=== PATIENT | male | born 1940 | race Caucasian/White ===

== ENCOUNTER → 2018-05-09 14:19 | Outpatient (CLI) | payer MEDICARE, BC, SELFPAY ==
--- NOTE | 2018-05-09 | DI.US.S_ITS ---
PROCEDURE: US PERIPH VENOUS LOW EXTREM LT INDICATIONS: LEFT LEG PAIN TECHNIQUE: Real-time imaging, as well as color and pulse Doppler interrogation, were performed of the lower extremity deep veins from the inguinal ligament to the popliteal fossa. COMPARISON: None. FINDINGS: The deep veins are normally compressible, and free of intraluminal thrombus. Color and pulse Doppler demonstrate normal phasic intraluminal flow. There is normal augmentation response to distal compression maneuver. IMPRESSION: Negative for deep venous thrombosis. Dictated by: Alex Tang M.D. on 05/09/2018 at 15:45 Approved by: Alex Tang M.D. on 05/09/2018 at 15:45
== END ==
PROVIDERS: PCP Internal Medicine; Visit Provider Neurological Surgery
DX: M79.662 Pain in left lower leg (principal)
CPT/HCPCS: 93971

== ENCOUNTER → 2018-08-10 14:11 | Outpatient (CLI) | payer MEDICARE, BC, SELFPAY ==
--- NOTE | 2018-08-10 | DI.RAD.S_ITS ---
PROCEDURE: XR CHEST 2V INDICATIONS: ACUTE BRONCHITIS TECHNIQUE: 2 views of the chest were acquired. COMPARISON: [facility], , CHEST 2 VIEW, 11/26/2015, 15:08. FINDINGS: Surgical changes and devices: Median sternotomy wires, atrial clip, and right chest wall cardiac device positions unchanged. Lungs and pleura: No pleural effusions or pneumothorax. Increased bronchovascular markings in bilateral hilar region are seen. Increase opacity in right infrahilar region is noted suspicious for right lower lobe infiltrate. Mediastinum: Mediastinal contours are normal. Heart size is enlarged. Bones and chest wall: No suspicious bony abnormalities. Soft tissues appear unremarkable. IMPRESSION: Findings concerning for small right infrahilar infiltrate. No significant pleural effusion. No gross pneumothorax. Dictated by: Ajay Foster M.D. on 08/10/2018 at 15:59 Approved by: Ajay Foster M.D. on 08/10/2018 at 16:00
== END ==
PROVIDERS: PCP Internal Medicine; Visit Provider Student in an Organized Health Care Education/Training Program
DX: J20.9 Acute bronchitis, unspecified (principal)
CPT/HCPCS: 71046

== ENCOUNTER → 2019-03-03 16:30 | Outpatient (CLI) | payer MEDICARE, BC, SELFPAY ==
--- NOTE | 2019-03-03 16:35 | DI.RAD.S_ITS ---
PROCEDURE: XR LUMBAR SPINE 2-3V INDICATIONS: LOWER BACK PAIN TECHNIQUE: 3 views of the lumbar spine were acquired. COMPARISON: None. FINDINGS: Bones: 5 [id number] vertebrae are present. There is levoscoliosis of the mid lumbar spine centered at L2-3 with associated moderate multilevel lumbar spondylosis and facet arthropathy. Degenerative changes of the lower thoracic spine. No vertebral body compression fractures. No suspicious bony lesions. Soft tissues: Overlying bowel gas pattern is normal. No suspicious soft tissue calcifications. Median sternotomy wires are noted. Dual-lead cardiac pacer leads are partially imaged. Multiple surgical clips in the lower abdomen and pelvis. IMPRESSION: 1. Lumbar spine without acute radiographic abnormalities. 2. Levoscoliosis of the mid lumbar spine with associated moderate multilevel thoracolumbar spondylosis. Dictated by: Jericho Pang M.D. on 03/03/2019 at 17:54 Approved by: Jericho Pang M.D. on 03/03/2019 at 17:57
== END ==
PROVIDERS: PCP Internal Medicine; Visit Provider Internal Medicine
DX: M54.5 Low back pain (principal); M47.815 Spondylosis without myelopathy or radiculopathy, thoracolumbar region; M41.86 Other forms of scoliosis, lumbar region
CPT/HCPCS: 72100

== ENCOUNTER → 2020-11-06 19:34 | Outpatient (ROUT) | payer MEDICARE, BC, SELFPAY ==
[2020-11-06 19:58] LABS: Aspartate Aminotransferase 29 IU/L (17-59); BUN Creatinine Ratio 23.8 (6-22); Blood Urea Nitrogen 20 mg/dL (9-20); Calcium 9.5 mg/dL (8.4-10.2); Carbon Dioxide 26 mmol/L (22-32); Chloride 98 mmol/L (98-107); Cholesterol 188 mg/dL (140-199); Estimated Glomerular Filt Rate > 60.0 mL/min (>60); Glucose 97 mg/dL (80-110); HDL Cholesterol 90 mg/dL (40-60); HEMOLYSIS 15 (0-50); LDL Cholesterol Calculated 58 mg/dL (<100); Potassium 4.3 mmol/L (3.4-5.1); Sodium 132 mmol/L (137-145); Triglycerides 198 mg/dL (35-150)
[2020-11-06 19:59] LABS: Add Manual Diff / Slide Review NO; Basophils Absolute Auto 100 /uL (0-100); Eosinophils Absolute Auto 300 /uL (0-450); Eosinophils Percent Auto 3.6 % (2-4); Hematocrit 40.6 % (41-53); Hemoglobin 13.7 g/dL (13.5-17.5); Lymphocytes Absolute Auto 3200 /uL (1100-4500); Mean Corpuscular HGB Conc 33.7 % (30-36); Mean Corpuscular Hemoglobin 31.5 PG (26-34); Mean Corpuscular Volume 93.5 fL (80-100); Monocytes Absolute Auto 700 /uL (0-900); Monocytes Percent Auto 8.4 % (3-14); Neutrophils Absolute Auto 3800 /uL (1500-7000); Platelet Count 221 X10^3/uL (150-400); Red Blood Cell Count 4.35 X10^6/uL (4.5-5.9); Red Cell Distribution Width 13.7 % (11.6-14.8); White Blood Cell Count 8.1 X10^3/uL (4.5-11.0)
[2020-11-06 20:30] LABS: TSH w/ Reflex to FT4 2.91 uIU/mL (0.47-4.68)
[2020-11-06 20:31] LABS: Prostate Specific Antigen 0.825 ng/mL (0.10-4.00)
== END ==
PROVIDERS: PCP Internal Medicine; Visit Provider Internal Medicine
DX: I10 Essential (primary) hypertension (principal); E78.2 Mixed hyperlipidemia; I48.91 Unspecified atrial fibrillation; N40.1 Benign prostatic hyperplasia with lower urinary tract symptoms
CPT/HCPCS: 80048; 80061; 84153; 84443; 84450; 85025

== ENCOUNTER 2021-01-07 11:08 | Emergency (ER) | payer MEDICARE, BC, SELFPAY ==
[2021-01-07 11:09] VITALS: BP 186/98; PULSE 82; RESP 18; TEMP 36.1; O2SAT 98; BMI 25.4
[2021-01-07 11:28] LABS: Add Manual Diff / Slide Review NO; Basophils Absolute Auto 100 /uL (0-100); Eosinophils Absolute Auto 200 /uL (0-450); Eosinophils Percent Auto 2.4 % (2-4); Hematocrit 40.2 % (41-53); Hemoglobin 13.2 g/dL (13.5-17.5); Lymphocytes Absolute Auto 2200 /uL (1100-4500); Lymphocytes Percent Auto 29.9 % (25-40); Mean Corpuscular HGB Conc 32.7 % (30-36); Mean Corpuscular Hemoglobin 30.7 PG (26-34); Mean Corpuscular Volume 93.9 fL (80-100); Monocytes Absolute Auto 500 /uL (0-900); Monocytes Percent Auto 7.4 % (3-14); Neutrophils Absolute Auto 4400 /uL (1500-7000); Neutrophils Percent Auto 59.3 % (50-75); Platelet Count 252 X10^3/uL (150-400); Red Blood Cell Count 4.29 X10^6/uL (4.5-5.9); Red Cell Distribution Width 13.6 % (11.6-14.8); White Blood Cell Count 7.4 X10^3/uL (4.5-11.0)
--- NOTE | 2021-01-07 11:31 | ED_ITS ---
HPI - Chest Pain General Chief Complaint: Chest Pain Stated Complaint: dizziness, chest pain, nausea, has a pacemaker Time Seen by Provider: 01/07/21 11:30 Source: patient Mode of arrival: Wheelchair Limitations: no limitations History of Present Illness HPI narrative: This is a 80-year-old male who comes with complaint of chest pain that started at 9:30 a.m. this morning. Patient has some nausea and felt dizzy. He has some radiation towards the back. He denies any shortness of breath. He states he has not had any syncope. He denies any diaphoresis. He denies any vomiting but does continue to feel nauseated. He took 281 mg aspirin prior to arrival. Patient denies any swelling in his extremities. He is on Eliquis for atrial fibrillation and has a history of mitral valve repair which improved his frequency of atrial fibrillation. Patient denies any prior cardiac stents or bypass otherwise. Does take medication for hypertension and dyslipidemia. Patient denies any other surgeries besides a thumb amputation and appendectomy. He denies any allergies to medications. He does not use any tobacco, rare alcohol and no illicit. He is accompanied by his . He follows with cardiology at [facility] with Dr. Ocasio. Related Data Home Medications Medication Instructions Recorded Confirmed apixaban 5 mg tablet 5 mg PO BID 04/08/20 06/11/20 atorvastatin 10 mg tablet 10 mg PO DAILY 04/08/20 06/11/20 cholecalciferol (vitamin D3) 10 10 mcg PO DAILY 04/08/20 06/11/20 mcg (400 unit) capsule diltiazem HCl 120 mg 120 mg PO BID 04/08/20 06/11/20 capsule,extended release 12 hr esomeprazole magnesium 40 mg 40 mg PO DAILY 04/08/20 06/11/20 capsule,delayed release finasteride 5 mg tablet 5 mg PO DAILY 04/08/20 06/11/20 hydrochlorothiazide 25 mg tablet 25 mg PO DAILY 04/08/20 06/11/20 losartan 50 mg tablet 50 mg PO DAILY 04/08/20 06/11/20 lutein 40 mg capsule 40 mg PO DAILY 04/08/20 06/11/20 sildenafil (pulm.hypertension) 20 20 mg PO TID 04/08/20 06/11/20 mg tablet sotalol 80 mg tablet 80 mg PO BID 04/08/20 06/11/20 Allergies Allergy/AdvReac Type Severity Reaction Status Date / Time No Known Drug Allergies Allergy Verified 01/07/21 11:23 Review of Systems Review of Systems ROS Unobtainable: All systems reviewed & are unremarkable except as noted in HPI and below Patient History Medical History (Updated 01/07/21 @ 12:07 by Cyn Petit DO) BPH w urinary obs/LUTS Erectile dysfunction HTN (hypertension) Lower urinary tract symptoms (LUTS) Pacemaker Urge incontinence Surgical History H/O knee surgery History of appendectomy History of hernia surgery History of hip surgery Social History Smoking Status: Never smoker Smoking Status: Never smoker alcohol intake frequency: holidays/special occasions only Substance Use Type: does not use Exam Narrative Exam Narrative: GENERAL: Alert and oriented x three, well-nourished male in mild distress. No diaphoresis. HEENT: Head normocephalic, atraumatic, EOMI, pupils reactive, face symmetric, moist mucous membranes NECK: Supple, full range of motion CARDIOVASCULAR: Regular rate and rhythm without murmurs, rubs or gallops. RESPIRATORY: Breath sounds equal bilaterally, no wheezes rales or rhonchi. ABDOMEN: Soft, nontender. Normoactive bowel sounds all 4 quadrants. No gua rding or rebound, rigidity, no mass, no pulsatile mass or bruit. : No CVA tenderness EXTREMITIES: Normal range of motion, no clubbing or edema. Neurovascularly intact NEUROLOGICAL: Cranial nerves II through XII grossly intact. Moving all extremities SKIN: Warm, dry, no petechiae, no rashes or lesions. Initial Vital Signs Initial Vital Signs: Vital Signs Temperature 97.0 F L 01/07/21 11:09 Pulse Rate 82 01/07/21 11:09 Respiratory Rate 18 01/07/21 11:09 Blood Pressure 186/98 H 01/07/21 11:09 Pulse Oximetry 98 01/07/21 11:09 Course Orders Ordered: ED Orders 01/07/21 11:10 EKG-12 Lead Stat 01/07/21 11:15 Complete Blood Count AUTO DIFF Stat Comprehensive Metabolic Panel Stat Lipase Stat Partial Thromboplastin Time Stat Prothrombin Time INR Stat Troponin & CK Cardiac Panel Stat 01/07/21 11:30 XR chest 1V Stat EKG-12 Lead Stat Discontinued Medications Aspirin (Aspirin 81 Mg Chew Tab) 324 mg PO NOW ONE Stop: 01/07/21 11:31 Last Admin: 01/07/21 11:36 Dose: 324 mg Documented by: NAKITA Nitroglycerin (Nitroglycerin 0.4 Mg Sl Tab) 0.4 mg SL [id number] PRN PRN Reason: chest driss Last Admin: 01/07/21 11:37 Dose: 0.4 mg Documented by: NAKITA Reevaluation(s) Reevaluation #1: Patient's chest pressure stool present. He had a 2nd EKG which showed improvement of the 4 and V5. Time: 11:30 Consultations Consultation #1: Spoke with Dr. Moore at [facility]. Faxing EKG for review when asked to hold on transportation until cardiology has had an opportunity to review the EKG. Patient's past medical history was discussed. Time: 11:35 Vital Signs Vital signs: Vital Signs - 8 hr 01/07/21 11:09 01/07/21 11:41 01/07/21 12:00 Temperature 97.0 F L Pulse Rate 82 71 70 Respiratory Rate 18 Blood Pressure 186/98 H 175/94 H 156/89 H Pulse Oximetry 98 MDM - Chest Pain Lab Data Attestation: I reviewed the patient's lab results. Result diagrams: 01/07/21 11:15 01/07/21 11:15 Labs: Lab Results 01/07/21 01/07/21 01/07/21 Range/Units 11:15 11:15 11:15 WBC 7.4 (4.5-11.0) X10^3/uL RBC 4.29 L (4.5-5.9) X10^6/uL Hgb 13.2 L (13.5-17.5) g/dL Hct 40.2 L (41-53) % MCV 93.9 (80-100) fL MCH 30.7 (26-34) PG MCHC 32.7 (30-36) % RDW 13.6 (11.6-14.8) % Plt Count 252 (150-400) X10^3/uL Neut % (Auto) 59.3 (50-75) % Lymph % (Auto) 29.9 (25-40) % [place] % (Auto) 7.4 (3-14) % Eos % (Auto) 2.4 (2-4) % Baso % (Auto) 1.0 (0-2) % Neut # (Auto) 4400 (2620-7437) /uL Lymph # (Auto) 2200 (8265-5225) /uL [place] # (Auto) 500 (0-900) /uL Eos # (Auto) 200 (0-450) /uL Baso # (Auto) 100 (0-100) /uL PT 13.6 H (10.1-12.7) SECONDS INR 1.2 (0.9-1.3) APTT 33 (26.4-36.2) SECONDS Sodium 132 L (137-145) mmol/L Potassium 3.9 (3.4-5.1) mmol/L Chloride 98 (98-107) mmol/L Carbon Dioxide 28 (22-32) mmol/L BUN 17 (9-20) mg/dL Creatinine 0.75 (0.66-1.25) mg/dL Estimated GFR > 60.0 (>60) mL/min BUN/Creatinine Ratio 22.7 H (6-22) Glucose 121 H (80-110) mg/dL Calcium 9.3 (8.4-10.2) mg/dL Total Bilirubin 0.7 (0.2-1.3) mg/dL AST 29 (17-59) IU/L ALT 19 (<50) IU/L Alkaline Phosphatase 81 (38-126) U/L Total Creatine Kinase 47 L (55-170) U/L CK-MB (CK-2) TNP CK-MB (CK-2) Rel Index TNP Troponin I < 0.012 (0.01-0.034) ng/mL Total Protein 7.7 (6.3-8.2) g/dL Albumin 4.5 (3.5-5.0) g/dL Globulin 3.2 (1.7-4.1) g/dL Albumin/Globulin Ratio 1.4 (1.0-2.8) Lipase 61 (23-300) U/L Imaging Data Chest x-ray: Radiologist's Impression: [address] [id number] ReportSigned Patient: Navjot Wylie JMR#: [id number]: 1Acct:[id number]/Sex: 80 / MDate of Service: 01/07/21Loc: EDAccession Number: [id number] Procedure: XR chest 1V Ordering Provider: Cyn Petit D.O. PROCEDURE: XR CHEST 1V INDICATIONS: chest pain TECHNIQUE: One view of the chest was acquired. COMPARISON: [facility], , CHEST 2 VIEW, 10/02/2015, 14:59. [facility], CR, CHEST 2 VIEW, 11/26/2015, 15:08. [facility], , XR CHEST 2V, 08/10/2018, 14:26. FINDINGS: Surgical changes and devices: A pacer device is seen. The leads are seen in stable positions. Sternotomy wires are seen. There is a metallic device seen overlying the superior mid heart, as before. Lungs and pleura: Stable opacity is seen involving the left lung base, which is within the lingula on prior studies. The lungs otherwise appear clear. No pneumothorax is seen. Mediastinum: Mediastinal contours appear normal. Heart size is normal. Bones and chest wall: No suspicious bony lesions. Mild dextroconvex scoliotic curvature is seen. Age-appropriate bony degenerative changes are seen. Overlying soft tissues appear unremarkable. IMPRESSION: Left lung base opacity seen involving the lingula, which is similar to prior examinations. Postoperative and degenerative changes are seen. Dictated by: Alex Tang M.D. on 01/07/2021 at 10:45 Approved by: Alex Tang M.D. on 01/07/2021 at 10:47 ECG Data Attestation: I personally reviewed and interpreted this ECG as follows: Prior ECG tracings: not available for review Interpretation: Patient has flipped T-waves in 3 and AVF, elevation for 1 mm and V2 and 3 with elevation in V4 and V5. I do not have any priors for comparison. EKG 2. Shows improvement of elevation in V4 5 but does still show changes in V2 V3 with inverted T-waves in 3 and AVF. MDM Narrative Medical decision making narrative: This is a 80-year-old male who appears to possibly have STEMI on his EKG with no priors for comparison. He has chest pressure some radiation to his back. Patient has a history of mitral valve repair, he is on Eliquis for atrial fibrillation. He takes medications for hypertension and dyslipidemia he has a prescription for sildenafil on his EMR but states he has not taken in a very long time. Patient was activated ST elevated ND and discussed with Dr. Moore from the emergency department. Patient EKG was sent to [facility] and reviewed by cardiology and Dr. Moore at there request prior to transport and they asked that we call back with plan for transfer for ER to ER. They asked that we do not heparinization at this time. They are okay with nitrates. Patient did receive aspirin in the department. Patient also took 161 mg of aspirin prior to arrival. Discharge Plan Departure Patient Disposition: [facility] Clinical Impression: Chest pain, ST elevation (STEMI) myocardial infarction Prescriptions: No Action diltiazem HCl 120 mg capsule,extended release 12 hr 120 mg PO BID RF: 0 lutein 40 mg capsule 40 mg PO DAILY RF: 0 Eliquis 5 mg tablet 5 mg PO BID RF: 0 hydrochlorothiazide 25 mg tablet 25 mg PO DAILY RF: 0 losartan 50 mg tablet 50 mg PO DAILY RF: 0 finasteride 5 mg tablet 5 mg PO DAILY RF: 0 sildenafil (pulm.hypertension) 20 mg tablet 20 mg PO TID RF: 0 esomeprazole magnesium 40 mg capsule,delayed release(DR/EC) 40 mg PO DAILY RF: 0 atorvastatin 10 mg tablet 10 mg PO DAILY RF: 0 cholecalciferol (vitamin D3) 10 mcg (400 unit) capsule 10 mcg PO DAILY RF: 0 sotalol 80 mg tablet 80 mg PO BID RF: 0 Referrals: Nav Walters MD [Primary Care Provider] -
[2021-01-07] MEDS: ASPIRIN 81 MG CHEW TAB 324 MG PO (11:36)
[2021-01-07] MEDS: NITROGLYCERIN 0.4 MG SL TAB SL (11:37)
[2021-01-07 11:39] LABS: INR 1.2 (0.9-1.3); Prothrombin Time 13.6 SECONDS (10.1-12.7)
[2021-01-07 11:41] VITALS: BP 175/94; PULSE 71
[2021-01-07 11:41] LABS: PTT Partial Thromboplastin Tim 33 SECONDS (26.4-36.2)
[2021-01-07 11:44] LABS: Alanine Aminotransferase 19 IU/L (<50); Albumin 4.5 g/dL (3.5-5.0); Albumin Globulin Ratio 1.4 (1.0-2.8); Alkaline Phosphatase 81 U/L (38-126); Aspartate Aminotransferase 29 IU/L (17-59); BUN Creatinine Ratio 22.7 (6-22); Bilirubin Total 0.7 mg/dL (0.2-1.3); Blood Urea Nitrogen 17 mg/dL (9-20); Calcium 9.3 mg/dL (8.4-10.2); Carbon Dioxide 28 mmol/L (22-32); Chloride 98 mmol/L (98-107); Creatine Kinase 47 U/L (55-170); Estimated Glomerular Filt Rate > 60.0 mL/min (>60); Globulin 3.2 g/dL (1.7-4.1); Glucose 121 mg/dL (80-110); HEMOLYSIS 18 (0-50); Lipase 61 U/L (23-300); Potassium 3.9 mmol/L (3.4-5.1); Sodium 132 mmol/L (137-145); Total Protein 7.7 g/dL (6.3-8.2)
[2021-01-07 11:54] LABS: Troponin I < 0.012 ng/mL (0.01-0.034)
[2021-01-07 12:00] VITALS: BP 156/89; PULSE 70
== END 2021-01-07 12:11 | disposition short-term general hospital (02) ==
PROVIDERS: Emergency Provider Emergency Medicine; PCP Internal Medicine
DX: I21.3 ST elevation (STEMI) myocardial infarction of unspecified site (principal); R11.0 Nausea; R42 Dizziness and giddiness; Z95.2 Presence of prosthetic heart valve; Z79.01 Long term (current) use of anticoagulants
CPT/HCPCS: 36415; 71045; 80053; 82550; 83690; 84484; 85025; 85610; 85730; 93005; 93010; 99284

== ENCOUNTER → 2021-01-14 18:56 | Outpatient (ROUT) | payer MEDICARE, BC, SELFPAY ==
[2021-01-14 19:40] LABS: Potassium 4.5 mmol/L (3.4-5.1)
[2021-01-14 19:41] LABS: BUN Creatinine Ratio 26.4 (6-22); Blood Urea Nitrogen 19 mg/dL (9-20); Calcium 9.3 mg/dL (8.4-10.2); Carbon Dioxide 27 mmol/L (22-32); Chloride 93 mmol/L (98-107); Estimated Glomerular Filt Rate > 60.0 mL/min (>60); Glucose 95 mg/dL (80-110); HEMOLYSIS 36 (0-50); Sodium 129 mmol/L (137-145)
== END ==
PROVIDERS: PCP Internal Medicine; Visit Provider Internal Medicine
DX: I10 Essential (primary) hypertension (principal)
CPT/HCPCS: 80048

== ENCOUNTER → 2022-04-02 07:57 | Outpatient (CLI) | payer MEDICARE, BC, SELFPAY ==
--- NOTE | 2022-04-02 | DI.ECHO.S_ITS ---
[facility] +---------+ : : [address] : : : : [id number] : : : : Phone: [phone] Echocardiogram Report + + :Name: SLICK ESTES Study Date: 04/02/2022 Height: 65 in : :[facility] ReadingLocation: Weight: 155 lb : : Gender: Male BSA: 1.8 m2 : :: 1940 Age: 82 yrs BP: 171/103 mmHg: :Reason For Study: Mitral Valve- Regurgitation : :Ordering Physician: DARRYN, : :THIERNO Performed By: Maxwell Moreira : :Referring: THIERNO CATES : + + Interpretation Summary The left ventricle is normal in size and wall thickness. Left ventricular ejection fraction is estimated to be 50 +/- 5%. Previous LV ejection fraction 45 to 50%. The right ventricle is mildly dilated. Right ventricular systolic function is at the lower limits of normal. There is a pacemaker lead in the right ventricle. An annuloplasty ring is noted in the mitral position.Restriction of the mitral leaflets without any severe mitral stenosis. The mitral valve mean gradient is 5 mmHg. There is mild mitral regurgitation. There is moderate tricuspid regurgitation. Compared to the prior echo exam, there has been an increase in TR severity. The right ventricular systolic pressure is estimated to be at least 52 mmHg based on an estimated right atrial pressure of 15 mm Hg. Compared to the prior echo exam, there has been an increase in the severity of pulmonary hypertension. Previously trivial tricuspid regurgitation and pulmonary artery systolic pressure about 29 mmHg. The ascending aorta is mildly enlarged. Procedure: A two-dimensional transthoracic echocardiogram with color flow and Doppler was performed. The study quality was technically adequate. Comparison is made with the echocardiogram of 08/29/2021. The patient has a paced rhythm. Left Ventricle: The left ventricle is normal in size and wall thickness. There is no thrombus. Left ventricular ejection fraction is estimated to be 50 +/- 5%. There is septal wall hypokinesis. Septal motion is consistent with conduction abnormality. Diastolic function could not be accurately assessed due to paced rhythm. Right Ventricle: The right ventricle is mildly dilated. There is a pacemaker lead in the right ventricle. Right ventricular systolic function is at the lower limits of normal. Atria: Both atria are severely dilated. The interatrial septum grossly appears intact with no obvious evidence for an atrial septal defect. Mitral Valve: An annuloplasty ring is noted in the mitral position. Restriction of the mitral leaflets without any severe mitral stenosis. The mitral valve mean gradient is 5 mmHg. There is mild mitral regurgitation. Aortic Valve: The aortic valve is trileaflet. The aortic valve is slightly calcified. There is no aortic valve stenosis. There is trace aortic regurgitation. Tricuspid Valve: The tricuspid annulus is dilated. There is moderate tricuspid regurgitation. The right ventricular systolic pressure is estimated to be at least 52 mmHg based on an estimated right atrial pressure of 15 mm Hg. Compared to the prior echo exam, there has been an increase in TR severity. Compared to the prior echo exam, there has been an increase in the severity of pulmonary hypertension. Pulmonic Valve: The pulmonic valve is not well seen, but is grossly normal. There is no pulmonic valvular regurgitation. Great Vessels: The aortic root is normal size. The ascending aorta is mildly enlarged. The IVC is dilated (diameter is greater than 2.1 cm) and it collapses less than 50% with a sniff. This suggests a high right atrial pressure of 15 mm Hg. Pericardium/ Pleura There is no pericardial effusion. There is no pleural effusion. MMode/2D Measurements & Calculations LVIDd: 4.6 cm LVOT diam: 2.0 cm LVIDs: 3.3 cm Ao root diam: 3.8 cm FS: 28.3 % asc Aorta Diam: 3.7 cm IVSd: 1.1 cm LVPWd: 1.0 cm LV dunn. diameter/BSA (cm/m^2): 2.6 LV sys. diameter/BSA (cm/m^2): 1.9 LA A2 area: 28.9 cm2 RA long axis: 6.4 cm LA A4 area: 31.0 cm2 RA area: 24.5 cm2 LA length (vol): 7.0 cm RA vol: 80.2 ml LA vol: 108.5 ml RA : 45.2 ml/m2 LA vol index: 61.1 ml/m2 IVC diam: 2.4 cm TAPSE: 1.7 cm Doppler Measurements & Calculations Ao V2 max: 88.5 cm/sec LVOT Max Cody: 69.1 cm/sec Ao V2 mean: 66.9 cm/sec LV V1 max P.9 mmHg Ao max P.1 mmHg LV V1 VTI: 14.7 cm Ao mean P.9 mmHg LUIS(I,D): 2.5 cm2 Ao V2 VTI: 18.2 cm LUIS(V,D): 2.4 cm2 sev ratio: 0.81 LUIS indexed to BSA (cm^2/m^2): 1.4 Med Peak E' Cody: 4.6 cm/sec TR max cody: 305.0 cm/sec Lat Peak E' Cody: 6.6 cm/sec TR max P.2 mmHg MVA(VTI): 1.0 cm2 MV V2 mean: 102.9 cm/sec SV(LVOT): 45.4 ml MV mean P.0 mmHg MV V2 VTI: 44.4 cm Reading Physician:09:32 AM
== END ==
PROVIDERS: PCP Internal Medicine; Referring Provider Internal Medicine Cardiovascular Disease; Visit Provider Internal Medicine Cardiovascular Disease
DX: I08.1 Rheumatic disorders of both mitral and tricuspid valves (principal); I77.89 Other specified disorders of arteries and arterioles; Z95.0 Presence of cardiac pacemaker
CPT/HCPCS: 93306

== ENCOUNTER → 2022-05-13 11:00 | Outpatient (CLI) | payer MEDICARE, BC, SELFPAY ==
[2022-05-13 13:08] LABS: Hematocrit 39.3 % (41-53); Hemoglobin 13.5 g/dL (13.5-17.5); Mean Corpuscular HGB Conc 34.3 % (30-36); Mean Corpuscular Hemoglobin 31.9 PG (26-34); Platelet Count 232 X10^3/uL (150-400); Red Blood Cell Count 4.22 X10^6/uL (4.5-5.9); Red Cell Distribution Width 14.3 % (11.6-14.8)
[2022-05-13 13:13] LABS: Alanine Aminotransferase 23 IU/L (<50); Albumin 4.3 g/dL (3.5-5.0); Albumin Globulin Ratio 1.2 (1.0-2.8); Alkaline Phosphatase 80 U/L (38-126); Aspartate Aminotransferase 32 IU/L (17-59); BUN Creatinine Ratio 19.5 (6-22); Bilirubin Total 0.9 mg/dL (0.2-1.3); Blood Urea Nitrogen 17 mg/dL (9-20); Calcium 8.9 mg/dL (8.4-10.2); Carbon Dioxide 31 mmol/L (22-32); Chloride 96 mmol/L (98-107); Cholesterol 175 mg/dL (140-199); Estimated Glomerular Filt Rate > 60 mL/min (>60); Globulin 3.5 g/dL (1.7-4.1); Glucose 91 mg/dL (80-110); HDL Cholesterol 71 mg/dL (40-60); HEMOLYSIS 15 (0-50); LDL Cholesterol Calculated 83 mg/dL (<100); Potassium 3.9 mmol/L (3.4-5.1); Sodium 133 mmol/L (137-145); Total Protein 7.8 g/dL (6.3-8.2); Triglycerides 103 mg/dL (35-150)
[2022-05-13 13:43] LABS: Prostate Specific Antigen 1.03 ng/mL (0.10-4.00)
[2022-05-13 13:47] LABS: TSH w/ Reflex to FT4 2.58 uIU/mL (0.47-4.68)
== END ==
PROVIDERS: PCP Internal Medicine; Referring Provider Internal Medicine; Visit Provider Internal Medicine
DX: E78.2 Mixed hyperlipidemia (principal); N40.1 Benign prostatic hyperplasia with lower urinary tract symptoms; I10 Essential (primary) hypertension; I48.0 Paroxysmal atrial fibrillation; I50.22 Chronic systolic (congestive) heart failure; N13.8 Other obstructive and reflux uropathy
CPT/HCPCS: 36415; 80053; 80061; 84153; 84443; 85027

== ENCOUNTER → 2023-09-10 11:48 | Outpatient (CLI) | payer MEDICARE, SELFPAY ==
--- NOTE | 2023-09-10 11:50 | DI.MG.S_ITS ---
MALE BILATERAL DIGITAL DIAGNOSTIC MAMMOGRAM 3D/2D: 09/10/2023 CLINICAL: Right breast tenderness. No prior exams were available for comparison. There is gynecomastia in the right breast that correlates with clinical concern, reported tenderness, and palpable area. No other significant masses, calcifications, or other findings are seen in either breast. IMPRESSION: BENIGN There is no mammographic evidence of malignancy. Right gynecomastia. Recommend clinical follow up for persistent or worsening symptoms, or development of any clinically suspicious findings. Findings and recommendations were conveyed to the patient during today's evaluation. This exam was interpreted at Station ID: [id number]. NOTE: For mammograms, a report in lay terms will be sent to the patient. Approximately 15% of breast malignancies will not be visualized mammographically. In the management of a palpable breast mass, a negative mammogram must not discourage biopsy of a clinically suspicious lesion. Electronically Signed By: Jericho Pang M.D. aty/:09/10/2023 12:42:06 letter sent: Male Normal Exam ACR BI-RADS Category 2: Benign Finding(s) [id number]
== END ==
LOC: MAMMO 11:49
PROVIDERS: PCP Internal Medicine; Referring Provider Internal Medicine; Visit Provider Internal Medicine
DX: N62 Hypertrophy of breast (principal)
CPT/HCPCS: 77066; G0279

== ENCOUNTER 2023-10-15 12:43 | Emergency (ER) | payer MEDICARE, SELFPAY ==
[2023-10-15] VITALS (13 sets, daily range): BP systolic 151–163; BP diastolic 74–89; PULSE 62–73; RESP 14–28; TEMP 36.3; O2SAT 97–99; BMI 25.7
--- NOTE | 2023-10-15 13:22 | DI.RAD.S_ITS ---
PROCEDURE: XR CHEST 1V INDICATIONS: chest pain TECHNIQUE: One view of the chest was acquired. COMPARISON: [facility], CR, XR CHEST 1V, 01/07/2021, 11:33. [facility], CR, XR CHEST 2V, 08/10/2018, 14:26. FINDINGS: Surgical changes and devices: Stable over time, prior sternotomy, pacemaker placement and dual chamber leads, and presumed atrial defect closure device.. Lungs and pleura: Lungs are unchanged with what appears to be mild lateral left pleural scarring. No pleural effusions or pneumothorax. Mediastinum: Mediastinal contours appear normal. Heart size is normal. Bones and chest wall: No suspicious bony lesions. Overlying soft tissues appear unremarkable. IMPRESSION: No acute cardiopulmonary abnormality is seen. Lateral left lower lobe lung scarring and pleural scarring, multiple postsurgical changes stable over time. Dictated by: Murali Fournier M.D. on 10/15/2023 at 14:25 Approved by: Murali Fournier M.D. on 10/15/2023 at 14:27
[2023-10-15 13:39] LABS: Add Manual Diff / Slide Review NO; Basophils Absolute Auto 100 /uL (0-100); Basophils Percent Auto 0.9 % (0-2); Eosinophils Absolute Auto 100 /uL (0-450); Eosinophils Percent Auto 1.6 % (2-4); Hematocrit 35.8 % (41-53); Hemoglobin 11.9 g/dL (13.5-17.5); Lymphocytes Absolute Auto 1900 /uL (1100-4500); Lymphocytes Percent Auto 25.3 % (25-40); Mean Corpuscular HGB Conc 33.2 % (30-36); Mean Corpuscular Hemoglobin 30.9 PG (26-34); Monocytes Absolute Auto 700 /uL (0-900); Monocytes Percent Auto 9.4 % (3-14); Neutrophils Absolute Auto 4800 /uL (1500-7000); Neutrophils Percent Auto 62.8 % (50-75); Platelet Count 249 X10^3/uL (150-400); Red Blood Cell Count 3.85 X10^6/uL (4.5-5.9); Red Cell Distribution Width 13.4 % (11.6-14.8); White Blood Cell Count 7.6 X10^3/uL (4.5-11.0)
--- NOTE | 2023-10-15 13:44 | ED_ITS ---
HPI - Dizziness General Chief Complaint: Dizziness Stated Complaint: hearing lost/ unexplained/ T-2 Time Seen by Provider: 10/15/23 13:20 Source: patient and family Mode of arrival: Ambulatory History of Present Illness HPI Narrative: Patient is a 83-year-old male history of atrial fibrillation with pacemaker, coronary artery disease, congestive heart failure, hypertension hyperlipidemia presenting today with 3 days of dizziness. He reports that 3 days ago he started noticing pretty severe dizziness worse with movement and standing. He has never had vertigo before. He is felt nauseous no significant vomiting. Not had any really numbness tingling or weakness. But does complain of bilateral hearing loss. No visual changes. He reports the 1st 2 days were the worst yesterday was little bit better but he still really unable to stand. He is able to lay down and sleep. He denies any chest pain or palpitations. No fever or chills. Not having any other symptoms Related Data Home Medications Medication Instructions Recorded Confirmed lutein 40 mg capsule 40 mg PO DAILY 04/08/20 09/01/23 aspirin 81 mg tablet,delayed 81 mg PO DAILY 05/13/22 09/01/23 release (Adult Low Dose Aspirin) cholecalciferol (vitamin D3) 125 125 mcg PO DAILY 05/13/22 09/01/23 mcg (5,000 unit) capsule sildenafil (pulm.hypertension) 20 20 mg PO DAILY PRN sexual activity 05/13/22 09/01/23 mg tablet sotalol 80 mg tablet 120 mg PO BID 05/13/22 09/01/23 amoxicillin 500 mg capsule 2,000 mg PO 09/01/23 09/01/23 Previous Rx's Medication Instructions Recorded amlodipine 5 mg tablet 5 mg PO DAILY #90 tabs 09/01/23 apixaban 5 mg tablet (Eliquis) 5 mg PO BID #180 tabs 09/01/23 atorvastatin 40 mg tablet 40 mg PO BEDTIME #90 tabs 09/01/23 carvedilol 12.5 mg tablet 12.5 mg PO BID #180 tabs 09/01/23 esomeprazole magnesium 40 mg 40 mg PO DAILY #90 caps 09/01/23 capsule,delayed release finasteride 5 mg tablet 5 mg PO DAILY #90 tabs 09/01/23 losartan 50 mg tablet 50 mg PO BID #180 tabs 09/01/23 spironolactone 25 mg tablet 25 mg PO DAILY #90 tabs 09/01/23 meclizine 25 mg tablet 25 mg PO TID PRN dizziness #10 tabs 10/15/23 Allergies Allergy/AdvReac Type Severity Reaction Status Date / Time simvastatin AdvReac Mild myalgia Verified 09/01/23 09:49 Patient History Medical History (Updated 10/15/23 @ 17:33 by Jazmin Larkin DO) Gynecomastia, male Asthma, mild intermittent History of COVID-19 Hearing loss Sleep apnea (~1989) Mumps (~1950) Measles (~1945) Chicken pox (~1946) Coronary artery disease History of colonic polyps Do not resuscitate Systolic CHF, chronic GERD without esophagitis Mixed hyperlipidemia Essential hypertension Chronic anticoagulation Paroxysmal atrial fibrillation BPH w urinary obs/LUTS Erectile dysfunction Urge incontinence Lower urinary tract symptoms (LUTS) Surgical History Anesthesia History of mandibular surgery (~2004) Benign tumor (~1954) Pacemaker (~2004) History of hernia surgery H/O knee surgery (~1966) History of hip surgery History of appendectomy (~1962) Family History Father History of heart disease Sister Mental health problem Social History details: (Sonia - dementia), grown children Smoking Status: Never smoker Smoking Status: Never smoker alcohol intake frequency: holidays/special occasions only Substance Use Type: does not use Exam Initial Vital Signs Initial Vital Signs: Vital Signs Temperature 97.3 F L 10/15/23 13:02 Pulse Rate 65 10/15/23 13:02 Respiratory Rate 16 10/15/23 13:02 Blood Pressure 151/74 H 10/15/23 13:02 Pulse Oximetry 98 10/15/23 13:02 Oxygen Delivery Method Room Air 10/15/23 13:02 GENERAL: Alert pleasant 83-year-old and in no acute distress. HEENT: Head atraumatic,EOMI, pupils reactive, no nystagmus, face symmetric, moist mucous membranes CARDIOVASCULAR: Regular rate and rhythm without murmurs, rubs or gallops. RESPIRATORY: Breath sounds equal bilaterally, no wheezes rales or rhonchi. ABDOMEN: Soft, nontender. Normoactive bowel sounds all 4 quadrants. No guarding or rebound. EXTREMITIES: Normal range of motion, no clubbing or edema. Neurovascularly intact NEUROLOGICAL: Alert and oriented x4.Normal gait and speech. Cranial nerves II through XII grossly intact. Good zqeyvk-[id number], good [id number], strength equal bilaterally, no dysarthria or aphasia, sensation in tact to soft touch bilaterally, no visual changes, no facial droop SKIN: Warm, dry, no laceration, no petechiae, no rashes or lesions. Scores NIH Stroke Scale Level of Conciousness: Alert, keenly responsive Ask month/age: Answers both questions correctly. Open/close eyes, close hand: Performs both tasks correctly Best gaze horizontal: Normal Visual jin: No visual loss Facial palsy: Normal symetrical movement Left arm drift: No drift for full 10 sec Right arm drift: No drift for full 10 sec Left leg drift: No drift for full 5 sec Right leg drift: No drift for full 5 sec Limb ataxia: Absent Sensory on face/arms/legs: Normal, no sensory loss Best language: No aphasia, normal Dysarthria: Normal Extinction or inattention: No abnormality Total NIH Stroke scale score: 0 Course Orders Ordered: ED Orders 10/15/23 13:22 XR chest 1V Stat 10/15/23 13:27 EKG-12 Lead Stat 10/15/23 13:30 Complete Blood Count AUTO DIFF Stat Comprehensive Metabolic Panel Stat Lipase Stat Magnesium Stat PTT Partial Thromboplastin Fabien Stat Prothrombin Time INR Stat Troponin & CK Cardiac Panel Stat 10/15/23 13:45 CT angio head and neck Stat Discontinued Medications Aspirin (Aspirin 81 Mg Chew Tab) 324 mg PO NOW ONE Stop: 10/15/23 13:23 Last Admin: 10/15/23 14:41 Dose: Not Given Documented By: MPO Sodium Chloride (Normal Saline 0.9%) 1,000 mls @ 150 mls/hr IV CONT OMKAR Last Admin: 10/15/23 14:35 Dose: 150 mls/hr Documented By: ASHLEY Meclizine HCl (Meclizine Hcl 12.5 Mg Tablet) 25 mg PO NOW ONE Stop: 10/15/23 13:46 Last Admin: 10/15/23 14:35 Dose: 25 mg Documented By: ASHLEY Vital Signs Vital signs: Vital Signs - 8 hr 02/23/24 13:02 10/15/23 13:25 10/15/23 13:30 Temperature 97.3 F L Pulse Rate 65 72 65 Respiratory Rate 16 22 16 Blood Pressure 151/74 H Pulse Oximetry 98 97 99 Oxygen Delivery Method Room Air Oxygen Flow Rate 10/15/23 14:00 10/15/23 14:30 10/15/23 15:00 Temperature Pulse Rate 65 67 69 Respiratory Rate 14 19 17 Blood Pressure Pulse Oximetry 98 98 Oxygen Delivery Method Oxygen Flow Rate 10/15/23 15:30 10/15/23 16:00 10/15/23 16:30 Temperature Pulse Rate 73 68 65 Respiratory Rate Blood Pressure Pulse Oximetry 98 98 Oxygen Delivery Method Oxygen Flow Rate 10/15/23 17:00 10/15/23 17:30 10/15/23 18:00 Temperature Pulse Rate 63 70 62 Respiratory Rate 15 28 H Blood Pressure 163/89 H Pulse Oximetry 98 98 Oxygen Delivery Method Oxygen Flow Rate 10/15/23 18:05 Temperature Pulse Rate Respiratory Rate Blood Pressure 163/79 H Pulse Oximetry Oxygen Delivery Method Room Air Oxygen Flow Rate 98 MDM - Dizziness Lab Data 10/15/23 13:30 10/15/23 13:30 Labs: Lab Results 10/15/23 Range/Units 13:30 WBC 7.6 (4.5-11.0) X10^3/uL RBC 3.85 L (4.5-5.9) X10^6/uL Hgb 11.9 L (13.5-17.5) g/dL Hct 35.8 L (41-53) % MCV 93.0 (80-100) fL MCH 30.9 (26-34) PG MCHC 33.2 (30-36) % RDW 13.4 (11.6-14.8) % Plt Count 249 (150-400) X10^3/uL Neut % (Auto) 62.8 (50-75) % Lymph % (Auto) 25.3 (25-40) % [place] % (Auto) 9.4 (3-14) % Eos % (Auto) 1.6 L (2-4) % Baso % (Auto) 0.9 (0-2) % Neut # (Auto) 4800 (5031-1919) /uL Lymph # (Auto) 1900 (2853-4456) /uL [place] # (Auto) 700 (0-900) /uL Eos # (Auto) 100 (0-450) /uL Baso # (Auto) 100 (0-100) /uL PT 17.6 H (9.4-12.5) SECONDS INR 1.5 H (0.9-1.3) APTT 39 H (25.1-36.5) SECONDS Sodium 131 L (137-145) mmol/L Potassium 4.0 (3.4-5.1) mmol/L Chloride 95 L (98-107) mmol/L Carbon Dioxide 28 (22-32) mmol/L BUN 13 (9-20) mg/dL Creatinine 0.82 (0.66-1.25) mg/dL Estimated GFR > 60 (>60) mL/min BUN/Creatinine Ratio 15.9 (6-22) Glucose 103 (80-110) mg/dL Calcium 9.1 (8.4-10.2) mg/dL Magnesium 2.0 (1.6-2.3) mg/dL Total Bilirubin 0.8 (0.2-1.3) mg/dL AST 37 (17-59) IU/L ALT 30 (<50) IU/L Alkaline Phosphatase 77 (38-126) U/L Total Creatine Kinase 42 L (55-170) U/L Troponin I < 0.012 (0.01-0.034) ng/mL Total Protein 8.1 (6.3-8.2) g/dL Albumin 4.5 (3.5-5.0) g/dL Globulin 3.6 (1.7-4.1) g/dL Albumin/Globulin Ratio 1.3 (1.0-2.8) Lipase 101 (23-300) U/L Imaging Data CTA - brain/neck: Radiologist's Impression: PROCEDURE: CT ANGIO HEAD AND NECK INDICATIONS: dizzy with hearing loss TECHNIQUE: After the administration of intravenous contrast, 1 mm thick sections acquired from the aortic arch through the [place] of [place]. 3-dimensional kaupkzc-kdfweazuv-xgelafuwcb (MIP) and/or volume rendering reformats were acquired of the central intracranial vasculature and neck separately. For radiation dose reduction, the following was used: automated exposure control, adjustment of mA and/or kV according to patient size. COMPARISON: [facility], CR, XR CHEST 1V, 10/15/2023, 13:47. FINDINGS: Image quality: Diagnostic. BRAIN: CSF spaces: Ventricles are normal in size and shape. Basal cisterns are patent. No extra-axial fluid collections. Brain: No significant abnormality of the brain can be seen. Skull and face: Calvarium and facial bones appear intact, without suspicious lesions. Orbits appear normal. Postoperative change of the anterior maxillary sinuses can be seen. Sinuses: Sinuses and mastoids are clear. HEAD CT ANGIOGRAPHY: Anterior circulation: Intracranial internal carotid arteries are normal in size and flow. The flow within the paired anterior cerebral arteries is normal and symmetric. The flow within the middle cerebral arteries is normal and symmetric. The anterior communicating artery is seen. No aneurysms are seen. Posterior circulation: Visualized portions of the vertebral arteries demonstrate normal caliber, and join to form a normal appearing basilar artery. Flow within the posterior cerebral arteries is normal and symmetric. No aneurysms are seen. NECK CT ANGIOGRAPHY: Carotid system: The great vessels demonstrate a conventional anatomy as they arise from the aortic arch. The origins of the common carotid arteries appear patent. The common carotid arteries demonstrate normal caliber and courses. The bifurcation regions demonstrate atherosclerotic irregularity and calcification, with 50% narrowing of the origin of the left internal carotid artery. 20% narrowing can be seen of the origin of the right internal carotid artery. The more distal internal carotid arteries demonstrate normal course and caliber. Posterior circulation: The origins of the vertebral arteries both appear widely patent. The more superior extracranial portions of both vertebral arteries also demonstrate normal courses and calibers. They join to form a normal appearing basilar artery. Soft tissues: Visualized neck soft tissues demonstrate no suspicious abnormalities. Is a right-sided pacer device is partially seen. Bones: No suspicious bony lesions. Visualized cervical spine appears normally aligned. At least moderate lower cervical spine degenerative change can be seen. Sternotomy wires are seen. IMPRESSION: No imaging explanation is found for this patient's presenting symptoms. No significant intracranial arterial abnormality is seen. No significant abnormality is seen within the arteries of the neck. There is 50% narrowing seen involving the origin of the left internal carotid artery. If it would be helpful for clinical management decision making, please consider a dedicated, brain MRI (IAC protocol, without and with contrast) for further evaluation (assuming that there is no contraindication from the pacer device). Additional findings: Postoperative change of the anterior maxillary sinuses At least moderate lower cervical spine degenerative change Right-sided pacer device Sternotomy wires Any quantitative measurements of stenosis were performed using NASCET criteria. Dictated by: Alex Tang M.D. on 10/15/2023 at 13:32 ECG Data Interpretation: Paced rhythm rate 65 MDM Narrative Medical decision making narrative: Patient 83-year-old male presents today with dizziness ongoing for the last couple of days. Actually is improving but not yet going away. It is definitely worse with movement and turning his head. He has never had vertigo previously. Denies any nausea vomiting or focal deficits Blood work has been reviewed sodium 131 but appears stable was previously was 133 no other signs of dehydration, no evidence of infection Imaging CT angio has been reviewed no evidence of large vessel occlusion or posterior CVA Patient's pacemaker was interrogated he is noted to go into atrial fibrillation today at 2:26 p.m. but no other arrhythmias. He has noted that he was in and out of AFib all the time he does not really feel it now but he has an AFib. He was not in atrial fibrillation for the last 2 days so I do not think this is related to his dizziness. He was given a dose of meclizine he was able to ambulate with walker. At this time I do suspect more vertigo like symptoms he is feeling better he feels able to go. Discharge Plan Departure Patient Disposition: Home Clinical Impression: Vertigo Instructions: DI for Vertigo Activity Restrictions/Additional Instructions: *You have been diagnosed with vertigo *What to do: At this time blood work is overall reassuring your CT scan also does not show anything abnormal. Your symptoms are consistent with vertigo. You may need to see ENT if your symptoms can tingling *Continue to take medications as directed Meclizine 25-50 mg every 8 hours if needed for dizziness *Follow up with your primary care provider in 2-3 days or call [phone] *Return to ER if you should have increasing dizziness falling chest pain or any new, worsening or concerning symptoms Prescriptions: New meclizine 25 mg tablet 25 mg PO TID PRN (Reason: dizziness) Qty: 10 0RF No Action lutein 40 mg capsule 40 mg PO DAILY Rx Instructions: administer with meals sildenafil (pulm.hypertension) 20 mg tablet 20 mg PO DAILY PRN (Reason: sexual activity) Rx Instructions: 3-5 tablets by mouth daily(take 30 minutes to 4 hours before sex). sotalol 80 mg tablet 120 mg PO BID amoxicillin 500 mg capsule 2,000 mg PO Rx Instructions: take 4 capsules by mouth 1 HOUR BEFORE DENTAL CLEANING amlodipine 5 mg tablet 5 mg PO DAILY Qty: 90 3RF Eliquis 5 mg tablet 5 mg PO BID Qty: 180 3RF atorvastatin 40 mg tablet 40 mg PO BEDTIME Qty: 90 3RF carvedilol 12.5 mg tablet 12.5 mg PO BID Qty: 180 3RF finasteride 5 mg tablet 5 mg PO DAILY Qty: 90 3RF esomeprazole magnesium 40 mg capsule,delayed release(DR/EC) 40 mg PO DAILY Qty: 90 3RF losartan 50 mg tablet 50 mg PO BID Qty: 180 3RF spironolactone 25 mg tablet 25 mg PO DAILY Qty: 90 3RF aspirin [Adult Low Dose Aspirin] 81 mg tablet,delayed release (DR/EC) 81 mg PO DAILY cholecalciferol (vitamin D3) 125 mcg (5,000 unit) capsule 125 mcg PO DAILY Referrals: Trae Felder MD [Primary Care Provider] - Stand Alone Forms: Patient Portal/API
[2023-10-15 13:46] LABS: INR 1.5 (0.9-1.3); Prothrombin Time 17.6 SECONDS (9.4-12.5)
[2023-10-15 13:49] LABS: PTT Partial Thromboplastin Tim 39 SECONDS (25.1-36.5)
[2023-10-15 13:53] LABS: Alanine Aminotransferase 30 IU/L (<50); Albumin 4.5 g/dL (3.5-5.0); Albumin Globulin Ratio 1.3 (1.0-2.8); Alkaline Phosphatase 77 U/L (38-126); Aspartate Aminotransferase 37 IU/L (17-59); BUN Creatinine Ratio 15.9 (6-22); Bilirubin Total 0.8 mg/dL (0.2-1.3); Blood Urea Nitrogen 13 mg/dL (9-20); Calcium 9.1 mg/dL (8.4-10.2); Carbon Dioxide 28 mmol/L (22-32); Chloride 95 mmol/L (98-107); Creatine Kinase 42 U/L (55-170); Estimated Glomerular Filt Rate > 60 mL/min (>60); Globulin 3.6 g/dL (1.7-4.1); Glucose 103 mg/dL (80-110); HEMOLYSIS 44 (0-50); Lipase 101 U/L (23-300); Sodium 131 mmol/L (137-145); Total Protein 8.1 g/dL (6.3-8.2)
[2023-10-15 14:04] LABS: Troponin I < 0.012 ng/mL (0.01-0.034)
[2023-10-15] MEDS: SODIUM CHLORIDE 0.9% 1,000 ML 150 ML IV (14:35)
[2023-10-15] MEDS: MECLIZINE HCL 12.5 MG TABLET 25 MG PO (14:35)
== END 2023-10-15 18:07 | disposition home or self-care (01) ==
PROVIDERS: Emergency Provider Emergency Medicine; PCP Internal Medicine
DX: R42 Dizziness and giddiness (principal); R07.9 Chest pain, unspecified; R29.700 NIHSS score 0; Z79.01 Long term (current) use of anticoagulants
CPT/HCPCS: 36415; 70496; 70498; 71045; 80053; 82550; 83690; 83735; 84484; 85025; 85610; 85730; 93005; 99284

== ENCOUNTER 2024-01-03 14:30 | Outpatient (RCR) | payer MEDICARE, SELFPAY ==
--- NOTE | 2023-11-23 12:23 | PT.OIE ---
Current Diagnoses Labyrinthitis, left ear (11/23/23) Sudden idiopathic hearing loss, left ear (11/23/23) Dizziness and giddiness (11/23/23) Past Medical History (Last Reviewed 11/17/23 @ 14:26 by Trae Felder MD) Asthma, mild intermittent BPH w urinary obs/LUTS BPPV (benign paroxysmal positional vertigo) Chicken pox (~7) Chronic anticoagulation Coronary artery disease Do not resuscitate Erectile dysfunction Essential hypertension GERD without esophagitis Gynecomastia, male Hearing loss History of colonic polyps History of COVID-19 Left-sided sensorineural hearing loss Lower urinary tract symptoms (LUTS) Measles (~1945) Mixed hyperlipidemia Mumps (~1950) Paroxysmal atrial fibrillation Sleep apnea (~1989) Systolic CHF, chronic Urge incontinence Past Surgical History (Last Reviewed 11/17/23 @ 14:26 by Trae Felder MD) Anesthesia Benign tumor (~1954) H/O knee surgery (~1966) History of appendectomy (~1962) History of hernia surgery History of hip surgery History of mandibular surgery (~2004) Pacemaker (~2004) Visit Care Team Role Provider Type Trae Felder MD Family Provider Physician Primary Care Provider Specialty: Internal Medicine Address: [address] [place] [address] Email: [email or web address] Stan Santoro MD Attending Provider Physician Referring Provider Specialty: Ear, Nose, Throat Address: [address] [place] [address], [facility] Email: [email or web address] Physical Therapy Initial Evaluation PT-OP-A Visit Information Start: 11/22/23 15:04 Freq: Status: Active Protocol: Document 11/23/23 11:17 MB (Rec: 11/23/23 12:22 MB [id number]) Out-Patient Physical Therapy Visit Information Visit Information Visit Type Initial Evaluation Visit Note [employer] Visit Start Time 11:17 Visit Stop Time 12:00 Visit Number 1 Number of DEVELOPMENTAL PSYCHOLOGIST Visits 0 Evaluation Information Evaluation Date 11/23/23 PT-OP-B Current Condition Start: 11/22/23 15:04 Freq: Status: Active Protocol: Document 11/23/23 11:17 MB (Rec: 11/23/23 12:22 MB [id number]) Current Condition History of Current Condition Onset Date 10/12/23 Current Complaints Imbalance History of Current Condition Pt had sudden onset of vertigo and left hearing loss on 10/12. Pt was seen in ED, and by PCP and ENT. He received oral prednisone and underwent two intratympanic injections. Pt is taking meclizine and it helps his symptoms. Pt denies: numbness/tingling, vision changes, history of concussion, performance of sit -ups, anemia, sinus/allergy issues, trouble swallowing, recent overhead lifting, B12 deficiency (pt takes it), eye pressure changes, history of whiplash, chiropractor treatment, TMJ problems and headache. Pt denies neck pain. Pt has baseline jitteriness in hands with writing. Pt reports: ear pressure, weakness (stamina), left ear hearing change, and roaring and ringing in the left ear. Pt has hearing aides. Pt has no return of left ear hearing. Pt reports history of third mitral valve repair 2009, chronic coagulation, cardiac pacemaker, remote history of smoking. Pt lives with his and daughter. He has no steps. He has not had any falls and he is using walking sticks when he goes for a walk. Prior Treatments and Tests See above Future Testing and Treatments Planned MRI brain at some point Treatment Goals Patient/Caregiver Goals To improve balance. PT-OP-C Subjective Start: 11/22/23 15:04 Freq: Status: Active Protocol: Document 11/23/23 11:17 MB (Rec: 11/23/23 12:22 [id number]) Patient Questionnaires Dizziness Handicap Inventory DHI Score 34 DHI Functional Impairment 20 to 39% Impaired (Score 20- 39) Other Questionnaire Name and Score FES score is 26/64 PT-OP-D Balance Start: 11/22/23 15:04 Freq: Status: Active Protocol: Document 11/23/23 11:17 MB (Rec: 11/23/23 12:22 MB [id number]) Balance Tests Other Other Balance Tests Performed Romberg: no LOB or sway Romberg EC: opens eyes twice and sway, more to the left EO on foam: bouncing instability in knees and no LOB EC on foam: more bouncing instability in knee and ankles and CGA Tandem: right behind: 2 sec; left behind 6 sec SLS: right: 3 sec; left foot: 5 sec PT-OP-G Mobility & Gait Start: 11/22/23 15:04 Freq: Status: Active Protocol: Document 11/23/23 11:17 MB (Rec: 11/23/23 12:22 MB [id number]) OP Gait Assessment Comments Gait Comments Pt makes some gait observations under FGA today PT-OP-H Neuro Start: 11/22/23 15:04 Freq: Status: Active Protocol: Document 11/23/23 11:17 MB (Rec: 11/23/23 12:22 MB [id number]) Coordination Evaluation Upper Extremity Tests Left Finger to Nose Test Minimal Impairment Pronation/Supination Test Minimal Impairment Right Finger to Nose Test Minimal Impairment Pronation/Supination Test Minimal Impairment PT-OP-J Posture/Palpation/Skin Start: 11/22/23 15:04 Freq: Status: Active Protocol: Document 11/23/23 11:17 MB (Rec: 11/23/23 12:22 MB [id number]) Posture Evaluation Comments Posture Comments Forward head, rounded shoulders, about 20 deg extension, 30 deg flexion, less left rotation than right grossly 30 deg and 40 deg PT-OP-M Strength Start: 11/22/23 15:04 Freq: Status: Active Protocol: Document 11/23/23 11:17 MB (Rec: 11/23/23 12:22 MB [id number]) Shoulder Strength Shoulder Manual Muscle Testing Bilateral Flexion 5 Normal Abduction (C5) 5 Normal Hip Strength Hip Manual Muscle Testing Bilateral Flexion (L2) 5 Normal PT-OP-O Vestibular Start: 11/22/23 15:04 Freq: Status: Active Protocol: Document 11/23/23 11:17 MB (Rec: 11/23/23 12:22 MB [id number]) Vestibular Assessment Visual Testing Smooth Pursuits Horizontal Normal Smooth Pursuits Vertical Normal Gaze Evoked Nystagmus With Fixation Negative Convergence Test WNL Spontaneous Nystagmus Negative Comments Vestibular Comments Pt denies dizzines with rolling over He does not tolerate Head Impulse Testing today and remains guarded at cervical spine PT-OP-Q Treatments Start: 11/22/23 15:04 Freq: Status: Active Protocol: Document 11/23/23 11:17 MB (Rec: 11/23/23 12:22 MB [id number]) Neuro Re-Education Treatment Balance Activities FGA Comments Pt has severe balance impairment, gaits slow with wide VIBHA and is unsteady. FGA score is 8/30, multiple other balance tests today documented under balance Self-Care/Home Management Treatment Education Other Education Education on anatomy of inner ear/vestibular, CN VIII, what PT can do about the VOR and balance, POC, benefits of improving non-caffeinated fluid intake and use of white noise maker if tinnitus bothers him at night PT-OP-T Assessment and Plan Start: 11/22/23 15:04 Freq: Status: Active Protocol: Document 11/23/23 11:17 MB (Rec: 11/23/23 12:22 MB [id number]) Physical Therapy Assessment Rehab Potential Rehabilitation Potential Good Evaluation Complexity Number of Personal Factors/Comorbidities 1-2 Number of Body Systems Impaired 1-2 Clinical Presentation at Evaluation Evolving Impairments Impairments Activity Tolerance,Balance, Coordination,Functional Activities,Functional Mobility ,Gait,Posture,ROM,Vestibular, Visual Motor Goals 3 Impairment Lack of VOR, posture and balance HEP Alf Goal (LTG) Pt will perform progressive HEP with I including postural, VOR, balance, alignment and gait exercises to decrease fall risk and improve balance. Consider [place] HEP program. LTG Duration 8 weeks 2 Impairment Evidence of imbalance Investment Representative Goal (LTG) Pt will perform WNLs on FGA or TUG to decrease fall risk and reflect improved balance. LTG Duration 8 weeks 1 Impairment FES / Investment Representative Goal (LTG) Pt will present with an improved FES to reflect decreased concern for falling and quality of life. LTG Duration 8 weeks Assessment Summary Assessment Pt is an 83 y/o male who has had work-up and treatment for left sided labyrinthitis that occurred suddenly on 10/12/23. Pt presents with imbalance with testing, no hearing left ear, and at increased risk for falling. Pt is too guarded for Head Impulse Test today. He will benefit from PT for postural and alignment training, VOR exercises, balance exercises including LE strengthening with program such as [place]. Physical Therapy Plan Frequency and Duration Frequency of Treatment 2x/Week Duration of treatment (weeks) 8 Plan of Care Start Date 11/23/23 Plan of Care End Date 01/24/24 Therapeutic Interventions Therapeutic Interventions Balance Training,Canalithic Repositioning,Coordination Training,Gait Training,Home Exercise Program,Joint Mobilizations,Manual Therapy, Neuromuscular Re-education, Patient/Caregiver Education, Self-Care/Home Management,Soft Tissue Mobilization,Taping, Therapeutic Activities, Therapeutic Exercises, Vestibular Rehabilitation Modalities Cold Pack/Ice Massage,Electric Stimulation,Hot Packs, Ultrasound Next Visit Focus/Plan Next Note Type Treatment Note Next Visit Plan Check orthostatics DVA testing
--- NOTE | 2023-11-23 12:23 | PT.OPPOC ---
Physical, Occupational & Speech Therapy At 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) Dizziness and giddiness (11/23/23) Visit Care Team Role Provider Type Trae Felder MD Family Provider Physician Primary Care Provider Specialty: Internal Medicine Address: [address] [place] [address], [id number] Email: [email or web address] Stan Santoro MD Attending Provider Physician Referring Provider Specialty: Ear, Nose, Throat Address: [address] [place] [address], [id number] Email: [email or web address] Plan Of Care PT-OP-T Assessment and Plan Start: 11/22/23 15:04 Freq: Status: Active Protocol: Document 11/23/23 11:17 MB (Rec: 11/23/23 12:22 MB [id number]) Physical Therapy Assessment Rehab Potential Rehabilitation Potential Good Evaluation Complexity Number of Personal Factors/Comorbidities 1-2 Number of Body Systems Impaired 1-2 Clinical Presentation at Evaluation Evolving Impairments Impairments Activity Tolerance,Balance, Coordination,Functional Activities,Functional Mobility ,Gait,Posture,ROM,Vestibular, Visual Motor Goals 3 Impairment Lack of VOR, posture and balance HEP [facility] Goal (LTG) Pt will perform progressive HEP with I including postural, VOR, balance, alignment and gait exercises to decrease fall risk and improve balance. Consider [facility] HEP program. LTG Duration 8 weeks 2 Impairment Evidence of imbalance [facility] Goal (LTG) Pt will perform WNLs on FGA or TUG to decrease fall risk and reflect improved balance. LTG Duration 8 weeks 1 Impairment FES / [facility] Goal (LTG) Pt will present with an improved FES to reflect decreased concern for falling and quality of life. LTG Duration 8 weeks Assessment Summary Assessment Pt is an 83 y/o male who has had work-up and treatment for left sided labyrinthitis that occurred suddenly on 10/12/23. Pt presents with imbalance with testing, no hearing left ear, and at increased risk for falling. Pt is too guarded for Head Impulse Test today. He will benefit from PT for postural and alignment training, VOR exercises, balance exercises including LE strengthening with program such as Robert. Physical Therapy Plan Frequency and Duration Frequency of Treatment 2x/Week Duration of treatment (weeks) 8 Plan of Care Start Date 11/23/23 Plan of Care End Date 01/24/24 Therapeutic Interventions Therapeutic Interventions Balance Training,Canalithic Repositioning,Coordination Training,Gait Training,Home Exercise Program,Joint Mobilizations,Manual Therapy, Neuromuscular Re-education, Patient/Caregiver Education, Self-Care/Home Management,Soft Tissue Mobilization,Taping, Therapeutic Activities, Therapeutic Exercises, Vestibular Rehabilitation Modalities Cold Pack/Ice Massage,Electric Stimulation,Hot Packs, Ultrasound Next Visit Focus/Plan Next Note Type Treatment Note Next Visit Plan Check orthostatics DVA testing Plan of Care Dates Plan of Care Start Date 11/23/23 Plan of Care End Date 01/24/24 Electronically Signed by: Pauline Villa PT 11/23/23 7775 If you are in agreement with this Plan of Care, please return a signed and dated copy. I have reviewed this Plan of Care and certify that the skilled therapy services above are required to meet the patient?s needs. Physician Signature Date Printed Name and Credentials Clinical Instructor Signature Printed Name and Credentials
--- NOTE | 2023-11-24 12:00 | PT.OTN ---
Current Diagnoses Labyrinthitis, left ear (11/24/23) Sudden idiopathic hearing loss, left ear (11/24/23) Dizziness and giddiness (11/24/23) Physical Therapy Treatment Note PT-OP-A Visit Information Start: 11/22/23 15:04 Freq: Status: Active Protocol: Document 11/24/23 11:19 MB (Rec: 11/24/23 12:00 MB [id number]) Out-Patient Physical Therapy Visit Information Visit Information Visit Type Treatment Note Visit Note [employer] Medicare Visit Start Time 11:19 Visit Stop Time 12:00 Visit Number 2 Number of GEOTECHNICAL ENGINEERING TECHNICIAN Visits 0 PT-OP-B Current Condition Start: 11/22/23 15:04 Freq: Status: Active Protocol: Document 11/23/23 11:17 MB (Rec: 11/23/23 12:22 MB [id number]) Current Condition History of Current Condition Onset Date 10/12/23 Current Complaints Imbalance History of Current Condition Pt had sudden onset of vertigo and left hearing loss on 10/12. Pt was seen in ED, and by PCP and ENT. He received oral prednisone and underwent two intratympanic injections. Pt is taking meclizine and it helps his symptoms. Pt denies: numbness/tingling, vision changes, history of concussion, performance of sit -ups, anemia, sinus/allergy issues, trouble swallowing, recent overhead lifting, B12 deficiency (pt takes it), eye pressure changes, history of whiplash, chiropractor treatment, TMJ problems and headache. Pt denies neck pain. Pt has baseline jitteriness in hands with writing. Pt reports: ear pressure, weakness (stamina), left ear hearing change, and roaring and ringing in the left ear. Pt has hearing aides. Pt has no return of left ear hearing. Pt reports history of third mitral valve repair 2009, chronic coagulation, cardiac pacemaker, remote history of smoking. Pt lives with his and daughter. He has no steps. He has not had any falls and he is using walking sticks when he goes for a walk. Prior Treatments and Tests See above Future Testing and Treatments Planned MRI brain at some point Treatment Goals Patient/Caregiver Goals To improve balance. PT-OP-C Subjective Start: 11/22/23 15:04 Freq: Status: Active Protocol: Document 11/24/23 11:19 MB (Rec: 11/24/23 12:00 MB [id number]) OP-PT Subjective Patient Comments Patient Comments Pt had a long day yesterday. He picked up his hearing aides and forgot to wear them this morning. He has no new questions after evaluation. PT-OP-D Balance Start: 11/22/23 15:04 Freq: Status: Active Protocol: Document 11/23/23 11:17 MB (Rec: 11/23/23 12:22 MB [id number]) Balance Tests Other Other Balance Tests Performed Romberg: no LOB or sway Romberg EC: opens eyes twice and sway, more to the left EO on foam: bouncing instability in knees and no LOB EC on foam: more bouncing instability in knee and ankles and CGA Tandem: right behind: 2 sec; left behind 6 sec SLS: right: 3 sec; left foot: 5 sec PT-OP-G Mobility & Gait Start: 11/22/23 15:04 Freq: Status: Active Protocol: Document 11/23/23 11:17 MB (Rec: 11/23/23 12:22 MB [id number]) OP Gait Assessment Comments Gait Comments Pt makes some gait observations under FGA today PT-OP-H Neuro Start: 11/22/23 15:04 Freq: Status: Active Protocol: Document 11/23/23 11:17 MB (Rec: 11/23/23 12:22 MB [id number]) Coordination Evaluation Upper Extremity Tests Left Finger to Nose Test Minimal Impairment Pronation/Supination Test Minimal Impairment Right Finger to Nose Test Minimal Impairment Pronation/Supination Test Minimal Impairment PT-OP-J Posture/Palpation/Skin Start: 11/22/23 15:04 Freq: Status: Active Protocol: Document 11/23/23 11:17 MB (Rec: 11/23/23 12:22 MB [id number]) Posture Evaluation Comments Posture Comments Forward head, rounded shoulders, about 20 deg extension, 30 deg flexion, less left rotation than right grossly 30 deg and 40 deg PT-OP-M Strength Start: 11/22/23 15:04 Freq: Status: Active Protocol: Document 11/23/23 11:17 MB (Rec: 11/23/23 12:22 MB [id number]) Shoulder Strength Shoulder Manual Muscle Testing Bilateral Flexion 5 Normal Abduction (C5) 5 Normal Hip Strength Hip Manual Muscle Testing Bilateral Flexion (L2) 5 Normal PT-OP-O Vestibular Start: 11/22/23 15:04 Freq: Status: Active Protocol: Document 11/23/23 11:17 MB (Rec: 11/23/23 12:22 MB [id number]) Vestibular Assessment Visual Testing Smooth Pursuits Horizontal Normal Smooth Pursuits Vertical Normal Gaze Evoked Nystagmus With Fixation Negative Convergence Test WNL Spontaneous Nystagmus Negative Comments Vestibular Comments Pt denies dizzines with rolling over He does not tolerate Head Impulse Testing today and remains guarded at cervical spine PT-OP-Q Treatments Start: 11/22/23 15:04 Freq: Status: Active Protocol: Document 11/24/23 11:19 MB (Rec: 11/24/23 12:00 MB [id number]) Therapeutic Activity Therapeutic Activity Orthostatic assessment Comments 8' for whole assessment to get BP stabilized in supine, for the testing and asked questions in supine. BP and HR in LUE: supine 135/76, 65; standing 137/74, 74; standing 1' 130/73, 64; standing 2' 137 /72, 65. Pt is CGA for mobility Neuro Re-Education Treatment Vestibular Rehabilitation Eye chart VOR exercise Comments Performed with HEP eye chart on wall and pt standing behind chair and using chair for UE support: head turns right and left focus on E second from bottom. Cues to keep E clear and pt moves head pretty slowly today. He is able to work up to 1' and does appear to understand the exercise. Vertical head movements: same letter and pt appears to understand the exercise and works up to 1'. His movement is rather slow today. DVA testing Comments Sitting in chair and reading eye chart with head still, pt can read correctly until one line from the end. He has four line difference with passive right and left horizontal head turns. He resists vertical head movements by PT. Self-Care/Home Management Treatment Education Other Education PT prints off APTA vestibular SIG patient handouts for why see a PT for dizziness, labyrinthitis, unlateral vestibular hypofunction, PT and the VOR, how does the balance system work PT-OP-T Assessment and Plan Start: 11/22/23 15:04 Freq: Status: Active Protocol: Document 11/24/23 11:19 MB (Rec: 11/24/23 12:00 MB [id number]) Physical Therapy Assessment Rehab Potential Rehabilitation Potential Good Evaluation Complexity Number of Personal Factors/Comorbidities 1-2 Number of Body Systems Impaired 1-2 Clinical Presentation at Evaluation Evolving Impairments Impairments Activity Tolerance,Balance, Coordination,Functional Activities,Functional Mobility ,Gait,Posture,ROM,Vestibular, Visual Motor Goals 3 Impairment Lack of VOR, posture and balance HEP Correction Goal (LTG) Pt will perform progressive HEP with I including postural, VOR, balance, alignment and gait exercises to decrease fall risk and improve balance. Consider [facility] HEP program. LTG Duration 8 weeks 2 Impairment Evidence of imbalance Machine Preservative Filler Goal (LTG) Pt will perform WNLs on FGA or TUG to decrease fall risk and reflect improved balance. LTG Duration 8 weeks 1 Impairment FES Correction Goal (LTG) Pt will present with an improved FES to reflect decreased concern for falling and quality of life. LTG Duration 8 weeks Assessment Summary Assessment Orthostatic testing is negative today. Pt has trouble allowing PT to passively move head for DVA testing, especially with vertical movement today. Pt appears to understand VOR exercise with eye chart today though is head movement is guarded and slow. Could consider metronome in the future but it just might be that exercise his hard d/t labyrinthitis and he needs to work into speed. Physical Therapy Plan Frequency and Duration Frequency of Treatment 2x/Week Duration of treatment (weeks) 8 Plan of Care Start Date 11/23/23 Plan of Care End Date 01/24/24 Therapeutic Interventions Therapeutic Interventions Balance Training,Canalithic Repositioning,Coordination Training,Gait Training,Home Exercise Program,Joint Mobilizations,Manual Therapy, Neuromuscular Re-education, Patient/Caregiver Education, Self-Care/Home Management,Soft Tissue Mobilization,Taping, Therapeutic Activities, Therapeutic Exercises, Vestibular Rehabilitation Modalities Cold Pack/Ice Massage,Electric Stimulation,Hot Packs, Ultrasound Next Visit Focus/Plan Next Note Type Treatment Note Next Visit Plan Review VOR exercise and add balance exercise
--- NOTE | 2023-11-29 12:49 | PT.OTN ---
Current Diagnoses Labyrinthitis, left ear (11/29/23) Sudden idiopathic hearing loss, left ear (11/29/23) Dizziness and giddiness (11/29/23) Physical Therapy Treatment Note PT-OP-A Visit Information Start: 11/22/23 15:04 Freq: Status: Active Protocol: Document 11/29/23 12:00 DCW (Rec: 11/29/23 12:49 DCW [id number]) Out-Patient Physical Therapy Visit Information Visit Information Visit Type Treatment Note Visit Note [employer] Medicare Visit Start Time 12:00 Visit Stop Time 12:45 Visit Number 3 Number of PUBLIC POLICY COORDINATOR Visits 0 PT-OP-B Current Condition Start: 11/22/23 15:04 Freq: Status: Active Protocol: Document 11/23/23 11:17 MB (Rec: 11/23/23 12:22 MB [id number]) Current Condition History of Current Condition Onset Date 10/12/23 Current Complaints Imbalance History of Current Condition Pt had sudden onset of vertigo and left hearing loss on 10/12. Pt was seen in ED, and by PCP and ENT. He received oral prednisone and underwent two intratympanic injections. Pt is taking meclizine and it helps his symptoms. Pt denies: numbness/tingling, vision changes, history of concussion, performance of sit -ups, anemia, sinus/allergy issues, trouble swallowing, recent overhead lifting, B12 deficiency (pt takes it), eye pressure changes, history of whiplash, chiropractor treatment, TMJ problems and headache. Pt denies neck pain. Pt has baseline jitteriness in hands with writing. Pt reports: ear pressure, weakness (stamina), left ear hearing change, and roaring and ringing in the left ear. Pt has hearing aides. Pt has no return of left ear hearing. Pt reports history of third mitral valve repair 2009, chronic coagulation, cardiac pacemaker, remote history of smoking. Pt lives with his and daughter. He has no steps. He has not had any falls and he is using walking sticks when he goes for a walk. Prior Treatments and Tests See above Future Testing and Treatments Planned MRI brain at some point Treatment Goals Patient/Caregiver Goals To improve balance. PT-OP-C Subjective Start: 11/22/23 15:04 Freq: Status: Active Protocol: Document 11/29/23 12:00 DCW (Rec: 11/29/23 12:49 DCW [id number]) OP-PT Subjective Patient Comments Patient Comments Still trying to get back to walking normally. PT-OP-D Balance Start: 11/22/23 15:04 Freq: Status: Active Protocol: Document 11/23/23 11:17 MB (Rec: 11/23/23 12:22 MB [id number]) Balance Tests Other Other Balance Tests Performed Romberg: no LOB or sway Romberg EC: opens eyes twice and sway, more to the left EO on foam: bouncing instability in knees and no LOB EC on foam: more bouncing instability in knee and ankles and CGA Tandem: right behind: 2 sec; left behind 6 sec SLS: right: 3 sec; left foot: 5 sec PT-OP-G Mobility & Gait Start: 11/22/23 15:04 Freq: Status: Active Protocol: Document 11/23/23 11:17 MB (Rec: 11/23/23 12:22 MB [id number]) OP Gait Assessment Comments Gait Comments Pt makes some gait observations under FGA today PT-OP-H Neuro Start: 11/22/23 15:04 Freq: Status: Active Protocol: Document 11/23/23 11:17 MB (Rec: 11/23/23 12:22 MB [id number]) Coordination Evaluation Upper Extremity Tests Left Finger to Nose Test Minimal Impairment Pronation/Supination Test Minimal Impairment Right Finger to Nose Test Minimal Impairment Pronation/Supination Test Minimal Impairment PT-OP-J Posture/Palpation/Skin Start: 11/22/23 15:04 Freq: Status: Active Protocol: Document 11/23/23 11:17 MB (Rec: 11/23/23 12:22 MB [id number]) Posture Evaluation Comments Posture Comments Forward head, rounded shoulders, about 20 deg extension, 30 deg flexion, less left rotation than right grossly 30 deg and 40 deg PT-OP-M Strength Start: 11/22/23 15:04 Freq: Status: Active Protocol: Document 11/23/23 11:17 MB (Rec: 11/23/23 12:22 MB [id number]) Shoulder Strength Shoulder Manual Muscle Testing Bilateral Flexion 5 Normal Abduction (C5) 5 Normal Hip Strength Hip Manual Muscle Testing Bilateral Flexion (L2) 5 Normal PT-OP-O Vestibular Start: 11/22/23 15:04 Freq: Status: Active Protocol: Document 11/23/23 11:17 MB (Rec: 11/23/23 12:22 MB [id number]) Vestibular Assessment Visual Testing Smooth Pursuits Horizontal Normal Smooth Pursuits Vertical Normal Gaze Evoked Nystagmus With Fixation Negative Convergence Test WNL Spontaneous Nystagmus Negative Comments Vestibular Comments Pt denies dizzines with rolling over He does not tolerate Head Impulse Testing today and remains guarded at cervical spine PT-OP-Q Treatments Start: 11/22/23 15:04 Freq: Status: Active Protocol: Document 11/29/23 12:00 DCW (Rec: 11/29/23 12:49 DCW [id number]) Neuro Re-Education Treatment Vestibular Rehabilitation Corrective Saccades Details Eyes, then head turns Distance From Target Arm's length Speed as tolerated Position Seated X2 Viewing Details Head and target moving in opposite directions Distance From Target Arm's length Speed as tolerated Position Seated X1 Viewing Details Static target, head turns Distance From Target Arm's length Speed as tolerated Position Seated VOR Retraining Details Target and head moving together Distance From Target Arm's length Speed as tolerated Position Seated Self-Care/Home Management Treatment Education Other Education Continued pt education on A&P of vestibular system, disease process of Labyrinthitis/ Unilateral vestibular hypofunction, goals and expectations of treatment. PT-OP-T Assessment and Plan Start: 11/22/23 15:04 Freq: Status: Active Protocol: Document 11/29/23 12:00 DCW (Rec: 11/29/23 12:49 DCW [id number]) Physical Therapy Assessment Impairments Impairments Activity Tolerance,Balance, Coordination,Functional Activities,Functional Mobility ,Gait,Posture,ROM,Vestibular, Visual Motor Goals 3 Impairment Lack of VOR, posture and balance HEP Snf Goal (LTG) Pt will perform progressive HEP with I including postural, VOR, balance, alignment and gait exercises to decrease fall risk and improve balance. Consider [facility] HEP program. LTG Duration 8 weeks 2 Impairment Evidence of imbalance Snf Goal (LTG) Pt will perform WNLs on FGA or TUG to decrease fall risk and reflect improved balance. LTG Duration 8 weeks 1 Impairment FES / Die Stamping Press Operator Goal (LTG) Pt will present with an improved FES to reflect decreased concern for falling and quality of life. LTG Duration 8 weeks Assessment Summary Assessment Good response to education for pt today, feeling a little more optimistic about getting back to somewhat normal function. Agreeable to addition of VOR, X1, X2, and saccade HEP. Physical Therapy Plan Frequency and Duration Frequency of Treatment 2x/Week Duration of treatment (weeks) 8 Plan of Care Start Date 11/23/23 Plan of Care End Date 01/24/24 Therapeutic Interventions Therapeutic Interventions Balance Training,Canalithic Repositioning,Coordination Training,Gait Training,Home Exercise Program,Joint Mobilizations,Manual Therapy, Neuromuscular Re-education, Patient/Caregiver Education, Self-Care/Home Management,Soft Tissue Mobilization,Taping, Therapeutic Activities, Therapeutic Exercises, Vestibular Rehabilitation Modalities Cold Pack/Ice Massage,Electric Stimulation,Hot Packs, Ultrasound Next Visit Focus/Plan Next Note Type Treatment Note Next Visit Plan Review VOR exercise and add balance exercise
--- NOTE | 2023-12-01 15:18 | PT.OTN ---
Current Diagnoses Labyrinthitis, left ear (12/01/23) Sudden idiopathic hearing loss, left ear (12/01/23) Dizziness and giddiness (12/01/23) Physical Therapy Treatment Note PT-OP-A Visit Information Start: 11/22/23 15:04 Freq: Status: Active Protocol: Document 12/01/23 14:35 MB (Rec: 12/01/23 15:18 MB [id number]) Out-Patient Physical Therapy Visit Information Visit Information Visit Type Treatment Note Visit Note [employer] Medicare Visit Start Time 14:35 Visit Stop Time 15:15 Visit Number 4 Number of SCADA TECHNICIAN Visits 0 PT-OP-B Current Condition Start: 11/22/23 15:04 Freq: Status: Active Protocol: Document 11/23/23 11:17 MB (Rec: 11/23/23 12:22 MB [id number]) Current Condition History of Current Condition Onset Date 10/12/23 Current Complaints Imbalance History of Current Condition Pt had sudden onset of vertigo and left hearing loss on 10/12. Pt was seen in ED, and by PCP and ENT. He received oral prednisone and underwent two intratympanic injections. Pt is taking meclizine and it helps his symptoms. Pt denies: numbness/tingling, vision changes, history of concussion, performance of sit -ups, anemia, sinus/allergy issues, trouble swallowing, recent overhead lifting, B12 deficiency (pt takes it), eye pressure changes, history of whiplash, chiropractor treatment, TMJ problems and headache. Pt denies neck pain. Pt has baseline jitteriness in hands with writing. Pt reports: ear pressure, weakness (stamina), left ear hearing change, and roaring and ringing in the left ear. Pt has hearing aides. Pt has no return of left ear hearing. Pt reports history of third mitral valve repair 2009, chronic coagulation, cardiac pacemaker, remote history of smoking. Pt lives with his and daughter. He has no steps. He has not had any falls and he is using walking sticks when he goes for a walk. Prior Treatments and Tests See above Future Testing and Treatments Planned MRI brain at some point Treatment Goals Patient/Caregiver Goals To improve balance. PT-OP-C Subjective Start: 11/22/23 15:04 Freq: Status: Active Protocol: Document 12/01/23 14:35 MB (Rec: 12/01/23 15:18 MB [id number]) OP-PT Subjective Patient Comments Patient Comments Pt states that he had a weird experience. His had a dental appointment and he went for a walk downtown. He felt very unsteady. PT-OP-D Balance Start: 11/22/23 15:04 Freq: Status: Active Protocol: Document 11/23/23 11:17 MB (Rec: 11/23/23 12:22 MB [id number]) Balance Tests Other Other Balance Tests Performed Romberg: no LOB or sway Romberg EC: opens eyes twice and sway, more to the left EO on foam: bouncing instability in knees and no LOB EC on foam: more bouncing instability in knee and ankles and CGA Tandem: right behind: 2 sec; left behind 6 sec SLS: right: 3 sec; left foot: 5 sec PT-OP-G Mobility & Gait Start: 11/22/23 15:04 Freq: Status: Active Protocol: Document 11/23/23 11:17 MB (Rec: 11/23/23 12:22 MB [id number]) OP Gait Assessment Comments Gait Comments Pt makes some gait observations under FGA today PT-OP-H Neuro Start: 11/22/23 15:04 Freq: Status: Active Protocol: Document 11/23/23 11:17 MB (Rec: 11/23/23 12:22 MB [id number]) Coordination Evaluation Upper Extremity Tests Left Finger to Nose Test Minimal Impairment Pronation/Supination Test Minimal Impairment Right Finger to Nose Test Minimal Impairment Pronation/Supination Test Minimal Impairment PT-OP-J Posture/Palpation/Skin Start: 11/22/23 15:04 Freq: Status: Active Protocol: Document 11/23/23 11:17 MB (Rec: 11/23/23 12:22 MB [id number]) Posture Evaluation Comments Posture Comments Forward head, rounded shoulders, about 20 deg extension, 30 deg flexion, less left rotation than right grossly 30 deg and 40 deg PT-OP-M Strength Start: 11/22/23 15:04 Freq: Status: Active Protocol: Document 11/23/23 11:17 MB (Rec: 11/23/23 12:22 MB [id number]) Shoulder Strength Shoulder Manual Muscle Testing Bilateral Flexion 5 Normal Abduction (C5) 5 Normal Hip Strength Hip Manual Muscle Testing Bilateral Flexion (L2) 5 Normal PT-OP-O Vestibular Start: 11/22/23 15:04 Freq: Status: Active Protocol: Document 11/23/23 11:17 MB (Rec: 11/23/23 12:22 MB [id number]) Vestibular Assessment Visual Testing Smooth Pursuits Horizontal Normal Smooth Pursuits Vertical Normal Gaze Evoked Nystagmus With Fixation Negative Convergence Test WNL Spontaneous Nystagmus Negative Comments Vestibular Comments Pt denies dizzines with rolling over He does not tolerate Head Impulse Testing today and remains guarded at cervical spine PT-OP-Q Treatments Start: 11/22/23 15:04 Freq: Status: Active Protocol: Document 12/01/23 14:35 MB (Rec: 12/01/23 15:18 MB [id number]) Gait Training Gait Activity Gait training with one and two walking sticks Comments Pt gait trains with one and two walking sticks and his gait speed and balance is much better than without. He prefers the two walking sticks and is able to walking indoors and up and down curbs and on grass: cues and CGA with cues to look left for curb mobility near the parking lot Neuro Re-Education Treatment Balance Activities Dynamic gait activities Comments From FGA: more advance balance activities such as gait with EC are too challenging for pt and so starting with sliding finger along wall and walking normal speed, then fast, then slow speed. 5 reps twice daily Vestibular Rehabilitation Corrective Saccades Details Eyes, then head turns Distance From Target Arm's length Speed as tolerated Position Seated Comments Challenging for pt as far as eyes and then head following movements X2 Viewing Details Head and target moving in opposite directions Distance From Target Arm's length Speed as tolerated Position Seated X1 Viewing Details Static target, head turns Distance From Target Arm's length Speed as tolerated Position Seated Comments Pt moves head slowly and has a hard time controlling his neck movements Ed pt he can stop this one if he wants because he is performing with eye chart in standing VOR Retraining Details Target and head moving together Distance From Target Arm's length Speed as tolerated Position Seated PT-OP-T Assessment and Plan Start: 11/22/23 15:04 Freq: Status: Active Protocol: Document 12/01/23 14:35 MB (Rec: 12/01/23 15:18 MB [id number]) Physical Therapy Assessment Rehab Potential Rehabilitation Potential Good Evaluation Complexity Number of Personal Factors/Comorbidities 1-2 Number of Body Systems Impaired 1-2 Clinical Presentation at Evaluation Evolving Impairments Impairments Activity Tolerance,Balance, Coordination,Functional Activities,Functional Mobility ,Gait,Posture,ROM,Vestibular, Visual Motor Goals 3 Impairment Lack of VOR, posture and balance HEP Electronics Processing Supervisor Goal (LTG) Pt will perform progressive HEP with I including postural, VOR, balance, alignment and gait exercises to decrease fall risk and improve balance. Consider [facility] HEP program. LTG Duration 8 weeks 2 Impairment Evidence of imbalance Skilled Nursing Goal (LTG) Pt will perform WNLs on FGA or TUG to decrease fall risk and reflect improved balance. LTG Duration 8 weeks 1 Impairment FES Skilled Nursing Goal (LTG) Pt will present with an improved FES to reflect decreased concern for falling and quality of life. LTG Duration 8 weeks Assessment Summary Assessment Reviewed sitting VOR exercises , added dynamic balance activities walking in hallway and ed pt in benefits of B walking sticks for walking in town and outside today. Physical Therapy Plan Frequency and Duration Frequency of Treatment 2x/Week Duration of treatment (weeks) 8 Plan of Care Start Date 11/23/23 Plan of Care End Date 01/24/24 Therapeutic Interventions Therapeutic Interventions Balance Training,Canalithic Repositioning,Coordination Training,Gait Training,Home Exercise Program,Joint Mobilizations,Manual Therapy, Neuromuscular Re-education, Patient/Caregiver Education, Self-Care/Home Management,Soft Tissue Mobilization,Taping, Therapeutic Activities, Therapeutic Exercises, Vestibular Rehabilitation Modalities Cold Pack/Ice Massage,Electric Stimulation,Hot Packs, Ultrasound Next Visit Focus/Plan Next Note Type Treatment Note Next Visit Plan Review standing VOR eye chart exercise, consider progressing gait activites with walking sticks for balance and static standing balance exercises
--- NOTE | 2023-12-08 14:28 | PT.OTN ---
Current Diagnoses Labyrinthitis, left ear (12/08/23) Sudden idiopathic hearing loss, left ear (12/08/23) Dizziness and giddiness (12/08/23) Physical Therapy Treatment Note PT-OP-A Visit Information Start: 11/22/23 15:04 Freq: Status: Active Protocol: Document 12/08/23 13:48 MB (Rec: 12/08/23 14:28 MB [id number]) Out-Patient Physical Therapy Visit Information Visit Information Visit Type Treatment Note Visit Note [employer] Medicare Visit Start Time 13:48 Visit Stop Time 12:28 Visit Number 5 Number of NETWORK MANAGER Visits 0 PT-OP-B Current Condition Start: 11/22/23 15:04 Freq: Status: Active Protocol: Document 11/23/23 11:17 MB (Rec: 11/23/23 12:22 MB [id number]) Current Condition History of Current Condition Onset Date 10/12/23 Current Complaints Imbalance History of Current Condition Pt had sudden onset of vertigo and left hearing loss on 10/12. Pt was seen in ED, and by PCP and ENT. He received oral prednisone and underwent two intratympanic injections. Pt is taking meclizine and it helps his symptoms. Pt denies: numbness/tingling, vision changes, history of concussion, performance of sit -ups, anemia, sinus/allergy issues, trouble swallowing, recent overhead lifting, B12 deficiency (pt takes it), eye pressure changes, history of whiplash, chiropractor treatment, TMJ problems and headache. Pt denies neck pain. Pt has baseline jitteriness in hands with writing. Pt reports: ear pressure, weakness (stamina), left ear hearing change, and roaring and ringing in the left ear. Pt has hearing aides. Pt has no return of left ear hearing. Pt reports history of third mitral valve repair 2009, chronic coagulation, cardiac pacemaker, remote history of smoking. Pt lives with his and daughter. He has no steps. He has not had any falls and he is using walking sticks when he goes for a walk. Prior Treatments and Tests See above Future Testing and Treatments Planned MRI brain at some point Treatment Goals Patient/Caregiver Goals To improve balance. PT-OP-C Subjective Start: 11/22/23 15:04 Freq: Status: Active Protocol: Document 12/08/23 13:48 MB (Rec: 12/08/23 14:28 MB [id number]) OP-PT Subjective Patient Comments Patient Comments Pt feels better and better. He feels his security with walking is better. He has been out walking with walking sticks. His eye exercises are going well. PT-OP-D Balance Start: 11/22/23 15:04 Freq: Status: Active Protocol: Document 11/23/23 11:17 MB (Rec: 11/23/23 12:22 MB [id number]) Balance Tests Other Other Balance Tests Performed Romberg: no LOB or sway Romberg EC: opens eyes twice and sway, more to the left EO on foam: bouncing instability in knees and no LOB EC on foam: more bouncing instability in knee and ankles and CGA Tandem: right behind: 2 sec; left behind 6 sec SLS: right: 3 sec; left foot: 5 sec PT-OP-G Mobility & Gait Start: 11/22/23 15:04 Freq: Status: Active Protocol: Document 11/23/23 11:17 MB (Rec: 11/23/23 12:22 MB [id number]) OP Gait Assessment Comments Gait Comments Pt makes some gait observations under FGA today PT-OP-H Neuro Start: 11/22/23 15:04 Freq: Status: Active Protocol: Document 11/23/23 11:17 MB (Rec: 11/23/23 12:22 MB [id number]) Coordination Evaluation Upper Extremity Tests Left Finger to Nose Test Minimal Impairment Pronation/Supination Test Minimal Impairment Right Finger to Nose Test Minimal Impairment Pronation/Supination Test Minimal Impairment PT-OP-J Posture/Palpation/Skin Start: 11/22/23 15:04 Freq: Status: Active Protocol: Document 11/23/23 11:17 MB (Rec: 11/23/23 12:22 MB [id number]) Posture Evaluation Comments Posture Comments Forward head, rounded shoulders, about 20 deg extension, 30 deg flexion, less left rotation than right grossly 30 deg and 40 deg PT-OP-M Strength Start: 11/22/23 15:04 Freq: Status: Active Protocol: Document 11/23/23 11:17 MB (Rec: 11/23/23 12:22 MB [id number]) Shoulder Strength Shoulder Manual Muscle Testing Bilateral Flexion 5 Normal Abduction (C5) 5 Normal Hip Strength Hip Manual Muscle Testing Bilateral Flexion (L2) 5 Normal PT-OP-O Vestibular Start: 11/22/23 15:04 Freq: Status: Active Protocol: Document 11/23/23 11:17 MB (Rec: 11/23/23 12:22 MB [id number]) Vestibular Assessment Visual Testing Smooth Pursuits Horizontal Normal Smooth Pursuits Vertical Normal Gaze Evoked Nystagmus With Fixation Negative Convergence Test WNL Spontaneous Nystagmus Negative Comments Vestibular Comments Pt denies dizzines with rolling over He does not tolerate Head Impulse Testing today and remains guarded at cervical spine PT-OP-Q Treatments Start: 11/22/23 15:04 Freq: Status: Active Protocol: Document 12/08/23 13:48 MB (Rec: 12/08/23 14:28 MB [id number]) Therapeutic Exercises Sitting Exercises STS Reps/Minutes 30 reps Comments Arms across chest LAQs Equipment Used 2 lb ankle weights Reps/Minutes 30 alternating x2 Standing Exercises Heel raises Equipment Used 2 lb ankle weights Reps/Minutes 30 reps Hamstring curls Equipment Used 2 lb ankle weights Reps/Minutes Alternating 30 reps x2 Standing hip abduction Equipment Used 2 lb ankle weights Reps/Minutes Alternating 30 reps x2 Neuro Re-Education Treatment Balance Activities SLS Comments Hand hovers over chair and can stand up to 3 sec on left leg and LOB x2 and CGA to assist; wall and chair pt con't to lose balance on right foot; with two chairs, equally challenging, did not add to home Tandem standing Comments Chair at side, 10 sec with left foot behind and then grabs chair, second rep a little longer; right foot behind 3 sec and then 15-20 sec PT-OP-T Assessment and Plan Start: 11/22/23 15:04 Freq: Status: Active Protocol: Document 12/08/23 13:48 MB (Rec: 12/08/23 14:28 MB [id number]) Physical Therapy Assessment Rehab Potential Rehabilitation Potential Good Evaluation Complexity Number of Personal Factors/Comorbidities 1-2 Number of Body Systems Impaired 1-2 Clinical Presentation at Evaluation Evolving Impairments Impairments Activity Tolerance,Balance, Coordination,Functional Activities,Functional Mobility ,Gait,Posture,ROM,Vestibular, Visual Motor Goals 3 Impairment Lack of VOR, posture and balance HEP [facility] Goal (LTG) Pt will perform progressive HEP with I including postural, VOR, balance, alignment and gait exercises to decrease fall risk and improve balance. Consider [place] HEP program. LTG Duration 8 weeks 2 Impairment Evidence of imbalance [facility] Goal (LTG) Pt will perform WNLs on FGA or TUG to decrease fall risk and reflect improved balance. LTG Duration 8 weeks 1 Impairment FES [facility] Goal (LTG) Pt will present with an improved FES to reflect decreased concern for falling and quality of life. LTG Duration 8 weeks Assessment Summary Assessment [place] LE strengthening and balance exercises started today and SLS is too challenging and so only added exercise above to HEP. 2 lb ankle weights are likely too easy for pt. Physical Therapy Plan Frequency and Duration Frequency of Treatment 2x/Week Duration of treatment (weeks) 8 Plan of Care Start Date 11/23/23 Plan of Care End Date 01/24/24 Therapeutic Interventions Therapeutic Interventions Balance Training,Canalithic Repositioning,Coordination Training,Gait Training,Home Exercise Program,Joint Mobilizations,Manual Therapy, Neuromuscular Re-education, Patient/Caregiver Education, Self-Care/Home Management,Soft Tissue Mobilization,Taping, Therapeutic Activities, Therapeutic Exercises, Vestibular Rehabilitation Modalities Cold Pack/Ice Massage,Electric Stimulation,Hot Packs, Ultrasound Next Visit Focus/Plan Next Note Type Treatment Note Next Visit Plan Con't [place] progression. Consider progressing gait activites with walking sticks for balance and static standing balance exercises, consider hip extension and ankle strengthening exercise
--- NOTE | 2023-12-14 09:44 | PT.OTN ---
Current Diagnoses Labyrinthitis, left ear (12/14/23) Sudden idiopathic hearing loss, left ear (12/14/23) Dizziness and giddiness (12/14/23) Physical Therapy Treatment Note PT-OP-A Visit Information Start: 11/22/23 15:04 Freq: Status: Active Protocol: Document 12/14/23 09:03 MB (Rec: 12/14/23 09:41 MB [id number]) Out-Patient Physical Therapy Visit Information Visit Information Visit Type Treatment Note Visit Note [employer] Medicare Visit Start Time 09:03 Visit Stop Time 09:43 Visit Number 6 Number of CLINICAL LABORATORY TECHNOLOGIST Visits 0 PT-OP-B Current Condition Start: 11/22/23 15:04 Freq: Status: Active Protocol: Document 11/23/23 11:17 MB (Rec: 11/23/23 12:22 MB [id number]) Current Condition History of Current Condition Onset Date 10/12/23 Current Complaints Imbalance History of Current Condition Pt had sudden onset of vertigo and left hearing loss on 10/12. Pt was seen in ED, and by PCP and ENT. He received oral prednisone and underwent two intratympanic injections. Pt is taking meclizine and it helps his symptoms. Pt denies: numbness/tingling, vision changes, history of concussion, performance of sit -ups, anemia, sinus/allergy issues, trouble swallowing, recent overhead lifting, B12 deficiency (pt takes it), eye pressure changes, history of whiplash, chiropractor treatment, TMJ problems and headache. Pt denies neck pain. Pt has baseline jitteriness in hands with writing. Pt reports: ear pressure, weakness (stamina), left ear hearing change, and roaring and ringing in the left ear. Pt has hearing aides. Pt has no return of left ear hearing. Pt reports history of third mitral valve repair 2009, chronic coagulation, cardiac pacemaker, remote history of smoking. Pt lives with his and daughter. He has no steps. He has not had any falls and he is using walking sticks when he goes for a walk. Prior Treatments and Tests See above Future Testing and Treatments Planned MRI brain at some point Treatment Goals Patient/Caregiver Goals To improve balance. PT-OP-C Subjective Start: 11/22/23 15:04 Freq: Status: Active Protocol: Document 12/14/23 09:03 MB (Rec: 12/14/23 09:41 MB [id number]) OP-PT Subjective Patient Comments Patient Comments Pt ordered 5 lb ankle weights and he is con't his vestibular exercises at home. PT-OP-D Balance Start: 11/22/23 15:04 Freq: Status: Active Protocol: Document 11/23/23 11:17 MB (Rec: 11/23/23 12:22 MB [id number]) Balance Tests Other Other Balance Tests Performed Romberg: no LOB or sway Romberg EC: opens eyes twice and sway, more to the left EO on foam: bouncing instability in knees and no LOB EC on foam: more bouncing instability in knee and ankles and CGA Tandem: right behind: 2 sec; left behind 6 sec SLS: right: 3 sec; left foot: 5 sec PT-OP-G Mobility & Gait Start: 11/22/23 15:04 Freq: Status: Active Protocol: Document 11/23/23 11:17 MB (Rec: 11/23/23 12:22 MB [id number]) OP Gait Assessment Comments Gait Comments Pt makes some gait observations under FGA today PT-OP-H Neuro Start: 11/22/23 15:04 Freq: Status: Active Protocol: Document 11/23/23 11:17 MB (Rec: 11/23/23 12:22 MB [id number]) Coordination Evaluation Upper Extremity Tests Left Finger to Nose Test Minimal Impairment Pronation/Supination Test Minimal Impairment Right Finger to Nose Test Minimal Impairment Pronation/Supination Test Minimal Impairment PT-OP-J Posture/Palpation/Skin Start: 11/22/23 15:04 Freq: Status: Active Protocol: Document 11/23/23 11:17 MB (Rec: 11/23/23 12:22 MB [id number]) Posture Evaluation Comments Posture Comments Forward head, rounded shoulders, about 20 deg extension, 30 deg flexion, less left rotation than right grossly 30 deg and 40 deg PT-OP-M Strength Start: 11/22/23 15:04 Freq: Status: Active Protocol: Document 11/23/23 11:17 MB (Rec: 11/23/23 12:22 MB [id number]) Shoulder Strength Shoulder Manual Muscle Testing Bilateral Flexion 5 Normal Abduction (C5) 5 Normal Hip Strength Hip Manual Muscle Testing Bilateral Flexion (L2) 5 Normal PT-OP-O Vestibular Start: 11/22/23 15:04 Freq: Status: Active Protocol: Document 11/23/23 11:17 MB (Rec: 11/23/23 12:22 MB [id number]) Vestibular Assessment Visual Testing Smooth Pursuits Horizontal Normal Smooth Pursuits Vertical Normal Gaze Evoked Nystagmus With Fixation Negative Convergence Test WNL Spontaneous Nystagmus Negative Comments Vestibular Comments Pt denies dizzines with rolling over He does not tolerate Head Impulse Testing today and remains guarded at cervical spine PT-OP-Q Treatments Start: 11/22/23 15:04 Freq: Status: Active Protocol: Document 12/14/23 09:03 MB (Rec: 12/14/23 09:41 MB [id number]) Therapeutic Exercises Sitting Exercises AP with eversion Resistance TB level 2 Equipment Used Sitting in chair Reps/Minutes 30 reps Standing Exercises Standing hip extension Resistance 2 lb ankle weights Equipment Used Standing behind chair Reps/Minutes Alternating 30 reps x2 Neuro Re-Education Treatment Balance Activities Tandem standing Comments Arms up at side, pt between ballet bar and chair, 20 sec right foot in front. Neck gets tight with arms out at side. Left foot in front 10 sec and cued to let arms dangle inside back of chair and at bar Vestibular Rehabilitation Eye chart VOR exercise Comments Standing exercise with one hand on chair and pt tends to move head too far and slowly. Set up metronome to 113 and pt tends to keep neck rigid. Vertical and horizontal head turns Other Activities HEP review Comments DVA and [place] exercise review today PT-OP-T Assessment and Plan Start: 11/22/23 15:04 Freq: Status: Active Protocol: Document 12/14/23 09:03 MB (Rec: 12/14/23 09:41 MB [id number]) Physical Therapy Assessment Rehab Potential Rehabilitation Potential Good Evaluation Complexity Number of Personal Factors/Comorbidities 1-2 Number of Body Systems Impaired 1-2 Clinical Presentation at Evaluation Evolving Impairments Impairments Activity Tolerance,Balance, Coordination,Functional Activities,Functional Mobility ,Gait,Posture,ROM,Vestibular, Visual Motor Goals 3 Impairment Lack of VOR, posture and balance HEP Director Telemetry Goal (LTG) Pt will perform progressive HEP with I including postural, VOR, balance, alignment and gait exercises to decrease fall risk and improve balance. Consider [facility] HEP program. LTG Duration 8 weeks 2 Impairment Evidence of imbalance Long-Term Goal (LTG) Pt will perform WNLs on FGA or TUG to decrease fall risk and reflect improved balance. LTG Duration 8 weeks 1 Impairment FES Director Telemetry Goal (LTG) Pt will present with an improved FES to reflect decreased concern for falling and quality of life. LTG Duration 8 weeks Assessment Summary Assessment Completed LE HEP progression program today. Took out card head turns with static card exercise as this is the same as eye chart exercise. Practice stepping up on risers . Physical Therapy Plan Frequency and Duration Frequency of Treatment 2x/Week Duration of treatment (weeks) 8 Plan of Care Start Date 11/23/23 Plan of Care End Date 01/24/24 Therapeutic Interventions Therapeutic Interventions Balance Training,Canalithic Repositioning,Coordination Training,Gait Training,Home Exercise Program,Joint Mobilizations,Manual Therapy, Neuromuscular Re-education, Patient/Caregiver Education, Self-Care/Home Management,Soft Tissue Mobilization,Taping, Therapeutic Activities, Therapeutic Exercises, Vestibular Rehabilitation Modalities Cold Pack/Ice Massage,Electric Stimulation,Hot Packs, Ultrasound Next Visit Focus/Plan Next Note Type Treatment Note Next Visit Plan Con't [place] balance exercise review and progression. Consider progressing gait activites with walking sticks and other activities for balance in clinic
--- NOTE | 2023-12-20 16:04 | PT.OTN ---
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/23) Dizziness and giddiness (12/20/23) Physical Therapy Treatment Note PT-OP-A Visit Information Start: 11/22/23 15:04 Freq: Status: Active Protocol: Document 12/20/23 15:20 MB (Rec: 12/20/23 16:04 MB [id number]) Out-Patient Physical Therapy Visit Information Visit Information Visit Type Treatment Note Visit Note [employer] Visit Start Time 15:20 Visit Stop Time 16:00 Visit Number 7 Number of TRIMMER HAND Visits 0 PT-OP-B Current Condition Start: 11/22/23 15:04 Freq: Status: Active Protocol: Document 11/23/23 11:17 MB (Rec: 11/23/23 12:22 MB [id number]) Current Condition History of Current Condition Onset Date 10/12/23 Current Complaints Imbalance History of Current Condition Pt had sudden onset of vertigo and left hearing loss on 10/12. Pt was seen in ED, and by PCP and ENT. He received oral prednisone and underwent two intratympanic injections. Pt is taking meclizine and it helps his symptoms. Pt denies: numbness/tingling, vision changes, history of concussion, performance of sit -ups, anemia, sinus/allergy issues, trouble swallowing, recent overhead lifting, B12 deficiency (pt takes it), eye pressure changes, history of whiplash, chiropractor treatment, TMJ problems and headache. Pt denies neck pain. Pt has baseline jitteriness in hands with writing. Pt reports: ear pressure, weakness (stamina), left ear hearing change, and roaring and ringing in the left ear. Pt has hearing aides. Pt has no return of left ear hearing. Pt reports history of third mitral valve repair 2009, chronic coagulation, cardiac pacemaker, remote history of smoking. Pt lives with his and daughter. He has no steps. He has not had any falls and he is using walking sticks when he goes for a walk. Prior Treatments and Tests See above Future Testing and Treatments Planned MRI brain at some point Treatment Goals Patient/Caregiver Goals To improve balance. PT-OP-C Subjective Start: 11/22/23 15:04 Freq: Status: Active Protocol: Document 12/20/23 15:20 MB (Rec: 12/20/23 16:04 MB [id number]) OP-PT Subjective Patient Comments Patient Comments Pt has a lot to do. He has a lot of exercises and he is getting ready for the [employer] concert. He finally got his 5 lb weights and he started his exercises. PT-OP-D Balance Start: 11/22/23 15:04 Freq: Status: Active Protocol: Document 11/23/23 11:17 MB (Rec: 11/23/23 12:22 MB [id number]) Balance Tests Other Other Balance Tests Performed Romberg: no LOB or sway Romberg EC: opens eyes twice and sway, more to the left EO on foam: bouncing instability in knees and no LOB EC on foam: more bouncing instability in knee and ankles and CGA Tandem: right behind: 2 sec; left behind 6 sec SLS: right: 3 sec; left foot: 5 sec PT-OP-G Mobility & Gait Start: 11/22/23 15:04 Freq: Status: Active Protocol: Document 11/23/23 11:17 MB (Rec: 11/23/23 12:22 MB [id number]) OP Gait Assessment Comments Gait Comments Pt makes some gait observations under FGA today PT-OP-H Neuro Start: 11/22/23 15:04 Freq: Status: Active Protocol: Document 11/23/23 11:17 MB (Rec: 11/23/23 12:22 MB [id number]) Coordination Evaluation Upper Extremity Tests Left Finger to Nose Test Minimal Impairment Pronation/Supination Test Minimal Impairment Right Finger to Nose Test Minimal Impairment Pronation/Supination Test Minimal Impairment PT-OP-J Posture/Palpation/Skin Start: 11/22/23 15:04 Freq: Status: Active Protocol: Document 11/23/23 11:17 MB (Rec: 11/23/23 12:22 MB [id number]) Posture Evaluation Comments Posture Comments Forward head, rounded shoulders, about 20 deg extension, 30 deg flexion, less left rotation than right grossly 30 deg and 40 deg PT-OP-M Strength Start: 11/22/23 15:04 Freq: Status: Active Protocol: Document 11/23/23 11:17 MB (Rec: 11/23/23 12:22 MB [id number]) Shoulder Strength Shoulder Manual Muscle Testing Bilateral Flexion 5 Normal Abduction (C5) 5 Normal Hip Strength Hip Manual Muscle Testing Bilateral Flexion (L2) 5 Normal PT-OP-O Vestibular Start: 11/22/23 15:04 Freq: Status: Active Protocol: Document 11/23/23 11:17 MB (Rec: 11/23/23 12:22 MB [id number]) Vestibular Assessment Visual Testing Smooth Pursuits Horizontal Normal Smooth Pursuits Vertical Normal Gaze Evoked Nystagmus With Fixation Negative Convergence Test WNL Spontaneous Nystagmus Negative Comments Vestibular Comments Pt denies dizzines with rolling over He does not tolerate Head Impulse Testing today and remains guarded at cervical spine PT-OP-Q Treatments Start: 11/22/23 15:04 Freq: Status: Active Protocol: Document 12/20/23 15:20 MB (Rec: 12/20/23 16:04 MB [id number]) Gait Training Gait Activity Gait challenges Comments Use of no walking sticks, one and two walking sticks and pt has decreased gait speed. Performed balance challenge with two long blue mats and stable steps under mats and unstable objects and pt performs with superv with two walking sticks, one walking stick and no walking sticks Neuro Re-Education Treatment Coordination Activities Tossing weighted ball against shuttle rebound Comments Several sets of tosses overhead pattern on flat floor about 10' away and then standing on black cushion and more challenge and pt performs less reps, requires superv and requires rest break 11 cone scanning sanchez Comments 11 cones positioned at various heights and pt is able to scan and find and collect all cones with little challenge Choir riser practice for balance Comments Pt holding eye chart and reading eye chart various directions while standing on step and keeping balance. Pt requires FURNACE WORKER and reaches for rail to ascend and descend steps. Pt thinks he can get on the floor on the far side so his right ear can hear for the choir concert, superv and pt is able to stand for 10' without LOB. Practiced holding notebook with smaller letters and pt has increased sway with concentration and he has a small tremor-type jerk that is very minimal in legs, cues for soft knees, talked about standing and singing along with TV or cd for practice; praticed reading and looking up with cues and then back to reading PT-OP-T Assessment and Plan Start: 11/22/23 15:04 Freq: Status: Active Protocol: Document 12/20/23 15:20 MB (Rec: 12/20/23 16:04 [id number]) Physical Therapy Assessment Rehab Potential Rehabilitation Potential Good Evaluation Complexity Number of Personal Factors/Comorbidities 1-2 Number of Body Systems Impaired 1-2 Clinical Presentation at Evaluation Evolving Impairments Impairments Activity Tolerance,Balance, Coordination,Functional Activities,Functional Mobility ,Gait,Posture,ROM,Vestibular, Visual Motor Goals 3 Impairment Lack of VOR, posture and balance HEP [facility] Goal (LTG) Pt will perform progressive HEP with I including postural, VOR, balance, alignment and gait exercises to decrease fall risk and improve balance. Consider [facility] HEP program. LTG Duration 8 weeks 2 Impairment Evidence of imbalance [facility] Goal (LTG) Pt will perform WNLs on FGA or TUG to decrease fall risk and reflect improved balance. LTG Duration 8 weeks 1 Impairment FES [facility] Goal (LTG) Pt will present with an improved FES to reflect decreased concern for falling and quality of life. LTG Duration 8 weeks Assessment Summary Assessment Progressed balance and gait activities today and consider more scanning tasks in hallway with letters in future treatments. Physical Therapy Plan Frequency and Duration Frequency of Treatment 2x/Week Duration of treatment (weeks) 8 Plan of Care Start Date 11/23/23 Plan of Care End Date 01/24/24 Therapeutic Interventions Therapeutic Interventions Balance Training,Canalithic Repositioning,Coordination Training,Gait Training,Home Exercise Program,Joint Mobilizations,Manual Therapy, Neuromuscular Re-education, Patient/Caregiver Education, Self-Care/Home Management,Soft Tissue Mobilization,Taping, Therapeutic Activities, Therapeutic Exercises, Vestibular Rehabilitation Modalities Cold Pack/Ice Massage,Electric Stimulation,Hot Packs, Ultrasound Next Visit Focus/Plan Next Note Type Treatment Note Next Visit Plan Progress gait activites with walking sticks and other activities for balance in clinic, scanning and head turning tasks, varying surfaces
--- NOTE | 2023-12-22 14:33 | PT.OTN ---
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 Pt was seen in ED, and by PCP and ENT. He received oral prednisone and underwent two intratympanic injections. Pt is taking meclizine and it helps his symptoms. Pt denies: numbness/tingling, vision changes, history of concussion, performance of sit -ups, anemia, sinus/allergy issues, trouble swallowing, recent overhead lifting, B12 deficiency (pt takes it), eye pressure changes, history of whiplash, chiropractor treatment, TMJ problems and headache. Pt denies neck pain. Pt has baseline jitteriness in hands with writing. Pt reports: ear pressure, weakness (stamina), left ear hearing change, and roaring and ringing in the left ear. Pt has hearing aides. Pt has no return of left ear hearing. Pt reports history of third mitral valve repair 2009, chronic coagulation, cardiac pacemaker, remote history of smoking. Pt lives with his and daughter. He has no steps. He has not had any falls and he is using walking sticks when he goes for a walk. Prior Treatments and Tests See above Future Testing and Treatments Planned MRI brain at some point Treatment Goals Patient/Caregiver Goals To improve balance. PT-OP-C Subjective Start: 11/22/23 15:04 Freq: Status: Active Protocol: Document 12/22/23 13:50 MB (Rec: 12/22/23 14:33 MB [id number]) OP-PT Subjective Patient Comments Patient Comments Pt states that he was tired after last treatment but he was also more confident. PT-OP-D Balance Start: 11/22/23 15:04 Freq: Status: Active Protocol: Document 11/23/23 11:17 MB (Rec: 11/23/23 12:22 MB [id number]) Balance Tests Other Other Balance Tests Performed Romberg: no LOB or sway Romberg EC: opens eyes twice and sway, more to the left EO on foam: bouncing instability in knees and no LOB EC on foam: more bouncing instability in knee and ankles and CGA Tandem: right behind: 2 sec; left behind 6 sec SLS: right: 3 sec; left foot: 5 sec PT-OP-G Mobility & Gait Start: 11/22/23 15:04 Freq: Status: Active Protocol: Document 11/23/23 11:17 MB (Rec: 11/23/23 12:22 MB [id number]) OP Gait Assessment Comments Gait Comments Pt makes some gait observations under FGA today PT-OP-H Neuro Start: 11/22/23 15:04 Freq: Status: Active Protocol: Document 11/23/23 11:17 MB (Rec: 11/23/23 12:22 MB [id number]) Coordination Evaluation Upper Extremity Tests Left Finger to Nose Test Minimal Impairment Pronation/Supination Test Minimal Impairment Right Finger to Nose Test Minimal Impairment Pronation/Supination Test Minimal Impairment PT-OP-J Posture/Palpation/Skin Start: 11/22/23 15:04 Freq: Status: Active Protocol: Document 11/23/23 11:17 MB (Rec: 11/23/23 12:22 MB [id number]) Posture Evaluation Comments Posture Comments Forward head, rounded shoulders, about 20 deg extension, 30 deg flexion, less left rotation than right grossly 30 deg and 40 deg PT-OP-M Strength Start: 11/22/23 15:04 Freq: Status: Active Protocol: Document 11/23/23 11:17 MB (Rec: 11/23/23 12:22 MB [id number]) Shoulder Strength Shoulder Manual Muscle Testing Bilateral Flexion 5 Normal Abduction (C5) 5 Normal Hip Strength Hip Manual Muscle Testing Bilateral Flexion (L2) 5 Normal PT-OP-O Vestibular Start: 11/22/23 15:04 Freq: Status: Active Protocol: Document 11/23/23 11:17 MB (Rec: 11/23/23 12:22 MB [id number]) Vestibular Assessment Visual Testing Smooth Pursuits Horizontal Normal Smooth Pursuits Vertical Normal Gaze Evoked Nystagmus With Fixation Negative Convergence Test WNL Spontaneous Nystagmus Negative Comments Vestibular Comments Pt denies dizzines with rolling over He does not tolerate Head Impulse Testing today and remains guarded at cervical spine PT-OP-Q Treatments Start: 11/22/23 15:04 Freq: Status: Active Protocol: Document 12/22/23 13:50 MB (Rec: 12/22/23 14:33 MB [id number]) Neuro Re-Education Treatment Coordination Activities Cone walking Comments 10 or more cones in hallway and walking around is too easy for pt and he tends to side step to avoid turning. Set up figure 8s with two cones and pt performs 10 times and this is more challenging Scanning for letters Comments Post-it note letters A, B and pt performing scanning and picking up letter selected by PT. Too easy for pt Tossing weighted ball against shuttle rebound Comments Several sets of tosses overhead pattern on flat floor about 10' away and then standing on black balane foam and more challenge and pt requires superv Choir riser practice for balance Comments Practiced on step today and shorter staircase steps, reading music, looking up and ascending and descending and pt requires superv for static standing and CGA to min A for climbing steps, more challenge with descending PT-OP-T Assessment and Plan Start: 11/22/23 15:04 Freq: Status: Active Protocol: Document 12/22/23 13:50 MB (Rec: 12/22/23 14:33 MB [id number]) Physical Therapy Assessment Rehab Potential Rehabilitation Potential Good Evaluation Complexity Number of Personal Factors/Comorbidities 1-2 Number of Body Systems Impaired 1-2 Clinical Presentation at Evaluation Evolving Impairments Impairments Activity Tolerance,Balance, Coordination,Functional Activities,Functional Mobility ,Gait,Posture,ROM,Vestibular, Visual Motor Goals 3 Impairment Lack of VOR, posture and balance HEP [facility] Goal (LTG) Pt will perform progressive HEP with I including postural, VOR, balance, alignment and gait exercises to decrease fall risk and improve balance. Consider [facility] HEP program. LTG Duration 8 weeks 2 Impairment Evidence of imbalance [facility] Goal (LTG) Pt will perform WNLs on FGA or TUG to decrease fall risk and reflect improved balance. LTG Duration 8 weeks 1 Impairment FES Dyer Helper Goal (LTG) Pt will present with an improved FES to reflect decreased concern for falling and quality of life. LTG Duration 8 weeks Assessment Summary Assessment Ascending and especially descending steps is very challenging for pt and he requires support to safely descend. He has choir concert with risers in the next couple of weeks and recommend standing on the floor or asking for some COLOR SPRAYER. Physical Therapy Plan Frequency and Duration Frequency of Treatment 2x/Week Duration of treatment (weeks) 8 Plan of Care Start Date 11/23/23 Plan of Care End Date 01/24/24 Therapeutic Interventions Therapeutic Interventions Balance Training,Canalithic Repositioning,Coordination Training,Gait Training,Home Exercise Program,Joint Mobilizations,Manual Therapy, Neuromuscular Re-education, Patient/Caregiver Education, Self-Care/Home Management,Soft Tissue Mobilization,Taping, Therapeutic Activities, Therapeutic Exercises, Vestibular Rehabilitation Modalities Cold Pack/Ice Massage,Electric Stimulation,Hot Packs, Ultrasound Next Visit Focus/Plan Next Note Type Treatment Note Next Visit Plan Progress gait activites with walking sticks and other activities for balance in clinic, scanning and head turning tasks, varying surfaces
--- NOTE | 2023-12-29 13:42 | PT.OTN ---
Current Diagnoses Labyrinthitis, left ear (12/29/23) Sudden idiopathic hearing loss, left ear (12/29/23) Dizziness and giddiness (12/29/23) Physical Therapy Treatment Note PT-OP-A Visit Information Start: 11/22/23 15:04 Freq: Status: Active Protocol: Document 12/29/23 13:02 MB (Rec: 12/29/23 13:42 MB [id number]) Out-Patient Physical Therapy Visit Information Visit Information Visit Type Treatment Note Visit Note [employer] Medicare Prog note next visit Visit Start Time 13:02 Visit Stop Time 13:42 Visit Number 9 Number of GEOCHEMISTRY TEACHER Visits 0 PT-OP-B Current Condition Start: 11/22/23 15:04 Freq: Status: Active Protocol: Document 11/23/23 11:17 MB (Rec: 11/23/23 12:22 MB [id number]) Current Condition History of Current Condition Onset Date 10/12/23 Current Complaints Imbalance History of Current Condition Pt had sudden onset of vertigo and left hearing loss on 10/12. Pt was seen in ED, and by PCP and ENT. He received oral prednisone and underwent two intratympanic injections. Pt is taking meclizine and it helps his symptoms. Pt denies: numbness/tingling, vision changes, history of concussion, performance of sit -ups, anemia, sinus/allergy issues, trouble swallowing, recent overhead lifting, B12 deficiency (pt takes it), eye pressure changes, history of whiplash, chiropractor treatment, TMJ problems and headache. Pt denies neck pain. Pt has baseline jitteriness in hands with writing. Pt reports: ear pressure, weakness (stamina), left ear hearing change, and roaring and ringing in the left ear. Pt has hearing aides. Pt has no return of left ear hearing. Pt reports history of third mitral valve repair 2009, chronic coagulation, cardiac pacemaker, remote history of smoking. Pt lives with his and daughter. He has no steps. He has not had any falls and he is using walking sticks when he goes for a walk. Prior Treatments and Tests See above Future Testing and Treatments Planned MRI brain at some point Treatment Goals Patient/Caregiver Goals To improve balance. PT-OP-C Subjective Start: 11/22/23 15:04 Freq: Status: Active Protocol: Document 12/29/23 13:02 MB (Rec: 12/29/23 13:42 MB [id number]) OP-PT Subjective Patient Comments Patient Comments The choir concert went well at the [facility] last week and he did not have any balance trouble. There were not any risers. PT-OP-D Balance Start: 11/22/23 15:04 Freq: Status: Active Protocol: Document 11/23/23 11:17 MB (Rec: 11/23/23 12:22 MB [id number]) Balance Tests Other Other Balance Tests Performed Romberg: no LOB or sway Romberg EC: opens eyes twice and sway, more to the left EO on foam: bouncing instability in knees and no LOB EC on foam: more bouncing instability in knee and ankles and CGA Tandem: right behind: 2 sec; left behind 6 sec SLS: right: 3 sec; left foot: 5 sec PT-OP-G Mobility & Gait Start: 11/22/23 15:04 Freq: Status: Active Protocol: Document 11/23/23 11:17 MB (Rec: 11/23/23 12:22 MB [id number]) OP Gait Assessment Comments Gait Comments Pt makes some gait observations under FGA today PT-OP-H Neuro Start: 11/22/23 15:04 Freq: Status: Active Protocol: Document 11/23/23 11:17 MB (Rec: 11/23/23 12:22 MB [id number]) Coordination Evaluation Upper Extremity Tests Left Finger to Nose Test Minimal Impairment Pronation/Supination Test Minimal Impairment Right Finger to Nose Test Minimal Impairment Pronation/Supination Test Minimal Impairment PT-OP-J Posture/Palpation/Skin Start: 11/22/23 15:04 Freq: Status: Active Protocol: Document 11/23/23 11:17 MB (Rec: 11/23/23 12:22 MB [id number]) Posture Evaluation Comments Posture Comments Forward head, rounded shoulders, about 20 deg extension, 30 deg flexion, less left rotation than right grossly 30 deg and 40 deg PT-OP-M Strength Start: 11/22/23 15:04 Freq: Status: Active Protocol: Document 11/23/23 11:17 MB (Rec: 11/23/23 12:22 MB [id number]) Shoulder Strength Shoulder Manual Muscle Testing Bilateral Flexion 5 Normal Abduction (C5) 5 Normal Hip Strength Hip Manual Muscle Testing Bilateral Flexion (L2) 5 Normal PT-OP-O Vestibular Start: 11/22/23 15:04 Freq: Status: Active Protocol: Document 11/23/23 11:17 MB (Rec: 11/23/23 12:22 MB [id number]) Vestibular Assessment Visual Testing Smooth Pursuits Horizontal Normal Smooth Pursuits Vertical Normal Gaze Evoked Nystagmus With Fixation Negative Convergence Test WNL Spontaneous Nystagmus Negative Comments Vestibular Comments Pt denies dizzines with rolling over He does not tolerate Head Impulse Testing today and remains guarded at cervical spine PT-OP-Q Treatments Start: 11/22/23 15:04 Freq: Status: Active Protocol: Document 12/29/23 13:02 MB (Rec: 12/29/23 13:42 MB [id number]) Neuro Re-Education Treatment Coordination Activities Nasal breathing and engaging diaphragm Comments Pt sitting during BP assessment and cues to breathe in and out of nose and to let stomach inflate with inhale and deflate with exhale. HR decreased to 68 BPM and some variability with a-fib; 63-80 BPM. After several minutes of softened nasal breathing, BP 148/84. Balance course practice Comments Figure 8 around cones, step over 3 mini hurdles with unstable surfac in between, balance beam, slow gait and min A to CGA for stepping on unstable surfaces and balance beam, basketball tosses with walking on area free of obstacles. A few reps and then sitting rest break d/t increased imbalance. O2 sats 98% and HR 78 BPM on pulse-ox Tossing weighted ball against shuttle rebound Comments Warm-up with feet apart and then Romberg and no trouble. Next, PT stands behind pt and encourages pt to pass ball to PT's hand that is up on one side to encourage rotation and scanning and then PT moves and pt to scan for ball, then toss it and look for PT's hand to pass back to. Next, tossing standing on black foam pad with normal VIBHA and then pt with increased ankle strategy PT-OP-T Assessment and Plan Start: 11/22/23 15:04 Freq: Status: Active Protocol: Document 12/29/23 13:02 MB (Rec: 12/29/23 13:42 MB [id number]) Physical Therapy Assessment Rehab Potential Rehabilitation Potential Good Evaluation Complexity Number of Personal Factors/Comorbidities 1-2 Number of Body Systems Impaired 1-2 Clinical Presentation at Evaluation Evolving Impairments Impairments Activity Tolerance,Balance, Coordination,Functional Activities,Functional Mobility ,Gait,Posture,ROM,Vestibular, Visual Motor Goals 3 Impairment Lack of VOR, posture and balance HEP Shelter Goal (LTG) Pt will perform progressive HEP with I including postural, VOR, balance, alignment and gait exercises to decrease fall risk and improve balance. Consider [facility] HEP program. LTG Duration 8 weeks 2 Impairment Evidence of imbalance Foot And Ankle Surgeon Goal (LTG) Pt will perform WNLs on FGA or TUG to decrease fall risk and reflect improved balance. LTG Duration 8 weeks 1 Impairment FES Shelter Goal (LTG) Pt will present with an improved FES to reflect decreased concern for falling and quality of life. LTG Duration 8 weeks Assessment Summary Assessment Pt with 3/3 Dyspnea Scale with indoor and outdoor activities today and requiring sitting rest breaks and breathing in and out of nose. BP and HR LUE : 160/98, 73 and O2 sats 99%. Pt to follow-up with synthetic staple extruder and he has an appointment next week. Frequent rest breaks today and working on slowing breathing and nasal breathing. Pt is concerned about CHAPMAN and he does note that he hasn't been as active since labrynthitis issues. Physical Therapy Plan Frequency and Duration Frequency of Treatment 2x/Week Duration of treatment (weeks) 8 Plan of Care Start Date 11/23/23 Plan of Care End Date 01/24/24 Therapeutic Interventions Therapeutic Interventions Balance Training,Canalithic Repositioning,Coordination Training,Gait Training,Home Exercise Program,Joint Mobilizations,Manual Therapy, Neuromuscular Re-education, Patient/Caregiver Education, Self-Care/Home Management,Soft Tissue Mobilization,Taping, Therapeutic Activities, Therapeutic Exercises, Vestibular Rehabilitation Modalities Cold Pack/Ice Massage,Electric Stimulation,Hot Packs, Ultrasound Other Referrals/Consults Referrals/Consults Recommended PT will send this note to Dr. Felder given pt's CHAPMAN and needing rest breaks and higher BP today Next Visit Focus/Plan Next Note Type Treatment Note Next Visit Plan Progress gait activites with walking sticks and other activities for balance in clinic, scanning and head turning tasks, varying surfaces
--- NOTE | 2024-01-03 15:15 | PT.OTN ---
Current Diagnoses Labyrinthitis, left ear (01/03/24) Sudden idiopathic hearing loss, left ear (01/03/24) Dizziness and giddiness (01/03/24) Physical Therapy Treatment Note PT-OP-A Visit Information Start: 11/22/23 15:04 Freq: Status: Active Protocol: Document 01/03/24 14:33 MB (Rec: 01/03/24 15:11 MB [id number]) Out-Patient Physical Therapy Visit Information Visit Information Visit Type Progress Note Visit Note [employer] Medicare Visit Start Time 14:33 Visit Stop Time 15:13 Visit Number 10 Number of HAT LINING PASTER Visits 0 PT-OP-B Current Condition Start: 11/22/23 15:04 Freq: Status: Active Protocol: Document 11/23/23 11:17 MB (Rec: 11/23/23 12:22 MB [id number]) Current Condition History of Current Condition Onset Date 10/12/23 Current Complaints Imbalance History of Current Condition Pt had sudden onset of vertigo and left hearing loss on 10/12. Pt was seen in ED, and by PCP and ENT. He received oral prednisone and underwent two intratympanic injections. Pt is taking meclizine and it helps his symptoms. Pt denies: numbness/tingling, vision changes, history of concussion, performance of sit -ups, anemia, sinus/allergy issues, trouble swallowing, recent overhead lifting, B12 deficiency (pt takes it), eye pressure changes, history of whiplash, chiropractor treatment, TMJ problems and headache. Pt denies neck pain. Pt has baseline jitteriness in hands with writing. Pt reports: ear pressure, weakness (stamina), left ear hearing change, and roaring and ringing in the left ear. Pt has hearing aides. Pt has no return of left ear hearing. Pt reports history of third mitral valve repair 2009, chronic coagulation, cardiac pacemaker, remote history of smoking. Pt lives with his and daughter. He has no steps. He has not had any falls and he is using walking sticks when he goes for a walk. Prior Treatments and Tests See above Future Testing and Treatments Planned MRI brain at some point Treatment Goals Patient/Caregiver Goals To improve balance. PT-OP-C Subjective Start: 11/22/23 15:04 Freq: Status: Active Protocol: Document 01/03/24 14:33 MB (Rec: 01/03/24 15:11 MB [id number]) OP-PT Subjective Patient Comments Patient Comments The choir concerts when well. Dr. Cutler should be calling him back. Pt still has SOB and reports some leg swelling. He increased his fluid pill. PT-OP-D Balance Start: 11/22/23 15:04 Freq: Status: Active Protocol: Document 11/23/23 11:17 MB (Rec: 11/23/23 12:22 MB [id number]) Balance Tests Other Other Balance Tests Performed Romberg: no LOB or sway Romberg EC: opens eyes twice and sway, more to the left EO on foam: bouncing instability in knees and no LOB EC on foam: more bouncing instability in knee and ankles and CGA Tandem: right behind: 2 sec; left behind 6 sec SLS: right: 3 sec; left foot: 5 sec PT-OP-G Mobility & Gait Start: 11/22/23 15:04 Freq: Status: Active Protocol: Document 11/23/23 11:17 MB (Rec: 11/23/23 12:22 MB [id number]) OP Gait Assessment Comments Gait Comments Pt makes some gait observations under FGA today PT-OP-H Neuro Start: 11/22/23 15:04 Freq: Status: Active Protocol: Document 11/23/23 11:17 MB (Rec: 11/23/23 12:22 MB [id number]) Coordination Evaluation Upper Extremity Tests Left Finger to Nose Test Minimal Impairment Pronation/Supination Test Minimal Impairment Right Finger to Nose Test Minimal Impairment Pronation/Supination Test Minimal Impairment PT-OP-J Posture/Palpation/Skin Start: 11/22/23 15:04 Freq: Status: Active Protocol: Document 11/23/23 11:17 MB (Rec: 11/23/23 12:22 MB [id number]) Posture Evaluation Comments Posture Comments Forward head, rounded shoulders, about 20 deg extension, 30 deg flexion, less left rotation than right grossly 30 deg and 40 deg PT-OP-M Strength Start: 11/22/23 15:04 Freq: Status: Active Protocol: Document 11/23/23 11:17 MB (Rec: 11/23/23 12:22 MB [id number]) Shoulder Strength Shoulder Manual Muscle Testing Bilateral Flexion 5 Normal Abduction (C5) 5 Normal Hip Strength Hip Manual Muscle Testing Bilateral Flexion (L2) 5 Normal PT-OP-O Vestibular Start: 11/22/23 15:04 Freq: Status: Active Protocol: Document 11/23/23 11:17 MB (Rec: 11/23/23 12:22 MB [id number]) Vestibular Assessment Visual Testing Smooth Pursuits Horizontal Normal Smooth Pursuits Vertical Normal Gaze Evoked Nystagmus With Fixation Negative Convergence Test WNL Spontaneous Nystagmus Negative Comments Vestibular Comments Pt denies dizzines with rolling over He does not tolerate Head Impulse Testing today and remains guarded at cervical spine PT-OP-Q Treatments Start: 11/22/23 15:04 Freq: Status: Active Protocol: Document 01/03/24 14:33 MB (Rec: 01/03/24 15:11 MB [id number]) Therapeutic Exercises Sitting Exercises AP with eversion Comments Provided [employer] and for advancement LAQs Comments Reviewed and 2 lb weight at home Standing Exercises Standing hip extension Comments Reviewed and 2 lb weight at home Heel raises Comments Reviewed and 2 lb weight at home Hamstring curls Comments Reviewed and 2 lb weight at home Standing hip abduction Comments Reviewed and 2 lb weight at home Neuro Re-Education Treatment Balance Activities TUG Comments Two trials, first 14 sec and second 11 sec Tandem standing Comments Pt performing next to chair and is part of [facility] program Dynamic gait activities Comments For home, pt is performing gait speed changes in gait in hallway and this is going well FGA Comments Started FGA and pt does well with changing gait speed and then he has SOB. He has LOB with head turns horizontally, stopped testing d/t CHAPMAN Coordination Activities Balance course practice Comments Is performing at home Vestibular Rehabilitation VOR Retraining Comments Reviewed sitting card exercises today, including ocular exercises Eye chart VOR exercise Comments Reviewed today and talked about advancement with increasing speed of head turns , keeping E clear PT-OP-T Assessment and Plan Start: 11/22/23 15:04 Freq: Status: Active Protocol: Document 01/03/24 14:33 MB (Rec: 01/03/24 15:11 MB [id number]) Physical Therapy Assessment Rehab Potential Rehabilitation Potential Good Evaluation Complexity Number of Personal Factors/Comorbidities 1-2 Number of Body Systems Impaired 1-2 Clinical Presentation at Evaluation Evolving Impairments Impairments Activity Tolerance,Balance, Coordination,Functional Activities,Functional Mobility ,Gait,Posture,ROM,Vestibular, Visual Motor Goals 3 Impairment Lack of VOR, posture and balance HEP Chcf Goal (LTG) Pt will perform progressive HEP with I including postural, VOR, balance, alignment and gait exercises to decrease fall risk and improve balance. Consider [facility] HEP program. 01/03/24: Pt has complete HEP and understands all exercises. His balance is a lot better. He cannot do the walking he would like to do d/t SOB/ cardiopulmonary issues. LTG Duration Met 2 Impairment Evidence of imbalance Conference Specialist Goal (LTG) Pt will perform WNLs on FGA or TUG to decrease fall risk and reflect improved balance. 01/03/24: TUG requires 14 sec, indicating increased risk for falling. Pt removed inserts for plantar fasciitis and then score is 11 sec. FGA: started testing and then stopped d/t SOB and challenge with testing LTG Duration Partially met 1 Impairment FES 26/64 Conference Specialist Goal (LTG) Pt will present with an improved FES to reflect decreased concern for falling and quality of life. 01/03/24: FES score is 22/64 LTG Duration Met Assessment Summary Assessment Ongoing c/o SOB and leg swelling. BP and HR in LUE in sittin/84, 65. Pt acute cardiopulmonary symptoms are barriers to outpatient PT and he feels something is not right and he follows up with underwear cutter January 25. PT and pt agree to stop PT now as he has full HEP and until his SOB and BP and c/o LE edema are better. Physical Therapy Plan Frequency and Duration Frequency of Treatment 2x/Week Duration of treatment (weeks) 8 Plan of Care Start Date 11/23/23 Plan of Care End Date 01/24/24 Therapeutic Interventions Therapeutic Interventions Balance Training,Canalithic Repositioning,Coordination Training,Gait Training,Home Exercise Program,Joint Mobilizations,Manual Therapy, Neuromuscular Re-education, Patient/Caregiver Education, Self-Care/Home Management,Soft Tissue Mobilization,Taping, Therapeutic Activities, Therapeutic Exercises, Vestibular Rehabilitation Modalities Cold Pack/Ice Massage,Electric Stimulation,Hot Packs, Ultrasound Other Referrals/Consults Referrals/Consults Recommended PT will send this note to Dr. Felder given pt's CHAPMAN and needing rest breaks and higher BP today Discharge Physical Therapy Discharge Reasons Change in Medical Status Next Visit Focus/Plan Next Note Type Treatment Note Next Visit Plan Progress gait activites with walking sticks and other activities for balance in clinic, scanning and head turning tasks, varying surfaces
== END 2024-01-05 14:06 | disposition home or self-care (01) ==
LOC: PHYS 14:30
PROVIDERS: Family Provider Internal Medicine; PCP Internal Medicine; Referring Provider Otolaryngology; Visit Provider Otolaryngology
DX: R42 Dizziness and giddiness (principal); H83.02 Labyrinthitis, left ear; H91.22 Sudden idiopathic hearing loss, left ear
CPT/HCPCS: 97110; 97112; 97116; 97161; 97535

== ENCOUNTER → 2024-05-18 14:41 | Outpatient (CLI) | payer MEDICARE, SELFPAY ==
[2024-05-18 16:58] LABS: Hematocrit 30.8 % (41-53); Hemoglobin 10.2 g/dL (13.5-17.5); Mean Corpuscular HGB Conc 33.2 % (30-36); Mean Corpuscular Volume 84.4 fL (80-100); Platelet Count 213 X10^3/uL (150-400); Red Blood Cell Count 3.65 X10^6/uL (4.5-5.9); Red Cell Distribution Width 15.9 % (11.6-14.8); White Blood Cell Count 6.7 X10^3/uL (4.5-11.0)
[2024-05-18 17:13] LABS: HEMOLYSIS 44 (0-50); Iron 74 ug/dL (49-181)
[2024-05-18 17:20] LABS: Alanine Aminotransferase 20 IU/L (<50); Albumin 4.3 g/dL (3.5-5.0); Albumin Globulin Ratio 1.5 (1.0-2.8); Alkaline Phosphatase 69 U/L (38-126); Aspartate Aminotransferase 34 IU/L (17-59); BUN Creatinine Ratio 27.2 (6-22); Bilirubin Total 0.7 mg/dL (0.2-1.3); Blood Urea Nitrogen 31 mg/dL (9-20); Calcium 9.1 mg/dL (8.4-10.2); Carbon Dioxide 22 mmol/L (22-32); Chloride 103 mmol/L (98-107); Cholesterol 159 mg/dL (140-199); Estimated Glomerular Filt Rate > 60 mL/min (>60); Globulin 2.9 g/dL (1.7-4.1); Glucose 88 mg/dL (80-110); HDL Cholesterol 79 mg/dL (40-60); HEMOLYSIS 65 (0-50); LDL Cholesterol Calculated 61 mg/dL (<100); Potassium 4.6 mmol/L (3.4-5.1); Sodium 134 mmol/L (137-145); Total Protein 7.2 g/dL (6.3-8.2); Triglycerides 94 mg/dL (35-150)
[2024-05-18 17:29] LABS: Percent Iron Saturation 16 % (20-50); Total Iron Binding Capacity 451 ug/dL (261-462); Transferrin 373 mg/dL (206-381)
[2024-05-18 17:45] LABS: TSH w/ Reflex to FT4 2.59 uIU/mL (0.47-4.68)
[2024-05-18 17:51] LABS: Prostate Specific Antigen 0.658 ng/mL (0.10-4.00)
[2024-05-18 17:55] LABS: Ferritin 10 ng/mL (18-464)
== END ==
PROVIDERS: Family Provider Internal Medicine; PCP Internal Medicine; Referring Provider Internal Medicine; Visit Provider Internal Medicine
DX: I25.10 Atherosclerotic heart disease of native coronary artery without angina pectoris (principal); D64.9 Anemia, unspecified; N40.1 Benign prostatic hyperplasia with lower urinary tract symptoms; N13.8 Other obstructive and reflux uropathy
CPT/HCPCS: 80053; 80061; 82728; 83540; 83550; 84153; 84443; 85027

== ENCOUNTER → 2024-09-21 15:34 | Outpatient (CLI) | payer MEDICARE, SELFPAY ==
[2024-09-21 17:30] LABS: Hematocrit 31.7 % (41-53); Hemoglobin 10.4 g/dL (13.5-17.5); Mean Corpuscular HGB Conc 32.7 % (30-36); Mean Corpuscular Hemoglobin 27.1 PG (26-34); Mean Corpuscular Volume 82.9 fL (80-100); Platelet Count 295 X10^3/uL (150-400); Red Blood Cell Count 3.83 X10^6/uL (4.5-5.9); Red Cell Distribution Width 16.3 % (11.6-14.8); White Blood Cell Count 7.5 X10^3/uL (4.5-11.0)
[2024-09-21 18:17] LABS: HEMOLYSIS < 15 (0-50); Iron 34 ug/dL (49-181)
[2024-09-21 18:20] LABS: BUN Creatinine Ratio 20.6 (6-22); Blood Urea Nitrogen 27 mg/dL (9-20); Calcium 9.1 mg/dL (8.4-10.2); Carbon Dioxide 25 mmol/L (22-32); Chloride 100 mmol/L (98-107); Estimated Glomerular Filt Rate 54 mL/min (>60); Glucose 92 mg/dL (80-110); HEMOLYSIS < 15 (0-50); Potassium 4.5 mmol/L (3.4-5.1); Sodium 132 mmol/L (137-145)
[2024-09-21 18:29] LABS: Percent Iron Saturation 8 % (20-50); Total Iron Binding Capacity 405 ug/dL (261-462); Transferrin 408 mg/dL (206-381)
[2024-09-21 18:53] LABS: Ferritin 9 ng/mL (18-464)
== END ==
PROVIDERS: Family Provider Internal Medicine; PCP Internal Medicine; Referring Provider Internal Medicine; Visit Provider Internal Medicine
DX: D64.9 Anemia, unspecified (principal); I10 Essential (primary) hypertension
CPT/HCPCS: 36415; 80048; 82728; 83540; 83550; 85027